=== PATIENT | female | born 1955 | race Caucasian/White ===

== ENCOUNTER 2020-03-08 08:58 | Outpatient (REF) | payer OTHER, SELFPAY ==
[2020-03-08 09:18] LABS: COVID-19 Test Negative (Negative)
== END 2020-03-08 08:59 | disposition home or self-care (01) ==
LOC: HO.LAB 08:58
PROVIDERS: Visit Provider Internal Medicine
DX: Z20.828 Contact with and (suspected) exposure to other viral communicable diseases (principal)
CPT/HCPCS: 87635

== ENCOUNTER 2020-03-22 07:57 | Outpatient (REF) | payer OTHER, SELFPAY ==
--- NOTE | 2020-03-22 08:10 | XR_ITS ---
EXAMINATION: XR CHEST CLINICAL INFORMATION: Cough COMPARISON: None TECHNIQUE: 2 views of the chest were obtained. FINDINGS: The cardiac and mediastinal contours are normal. There is linear scarring or subsegmental atelectasis in the left mid lung. The lungs are otherwise clear. There is no pleural effusion or pneumothorax. There are degenerative changes of the spine. XR/XR chest 2V IMPRESSION: Left lung scarring or subsegmental atelectasis.
[2020-03-22 08:48] LABS: MANUAL DIFF FLAG NO
[2020-03-22 09:06] LABS: Basophils Absolute Auto 0.1 X10*3/uL (0.0-0.2); Basophils Percent Auto 0.7 % (0-2); Eosinophils Absolute Auto 0.2 X10*3/uL (0.0-0.4); Eosinophils Percent Auto 2.3 % (0-4); Hematocrit 39.8 % (37-47); Hemoglobin 13.1 g/dl (12.0-16.0); Imm Gran Abs Auto 0.03 X10*3/uL (0.00-0.03); Imm Gran Pct Auto 0.4 % (0.0-0.4); Lymphocytes Absolute Auto 2.3 X10*3/uL (1.2-4.9); Lymphocytes Percent Auto 32.8 % (20-40); Mean Corpuscular HGB Conc 32.9 g/dl (31.0-35.0); Mean Corpuscular Hemoglobin 30.2 pg (27.0-33.0); Mean Corpuscular Volume 91.7 fL (80-98); Mean Platelet Volume 9.9 fL (9.4-12.3); Monocytes Absolute Auto 0.4 X10*3/uL (0.1-1.2); Neutrophils Percent Auto 57.8 % (45-73); Platelet Count 311 X10*3/uL (160-400); Red Blood Count 4.34 X10*6/uL (4.20-5.50); Red Cell Distribution Width 12.4 % (11.0-16.0); White Blood Count 6.9 X10*3/uL (4.8-10.8)
[2020-03-22 10:14] LABS: Erythrocyte Sedimentation Rate 12 MM/HR (0-20)
[2020-03-27 19:09] LABS: Mycoplasma Pneumoniae - IgG 2.56 (<=0.90); Mycoplasma Pneumoniae - IgM 65 U/mL (<770)
== END 2020-03-22 07:58 | disposition home or self-care (01) ==
LOC: HO.LAB 07:57
DX: R53.83 Other fatigue (principal); R05 Cough
CPT/HCPCS: 36415; 71046; 85025; 85652; 86738

== ENCOUNTER 2020-04-03 08:44 | Outpatient (REF) | payer OTHER, SELFPAY ==
[2020-04-03 10:48] LABS: COVID-19 Test Negative (Negative)
== END 2020-04-03 08:45 | disposition home or self-care (01) ==
LOC: HO.EMPCOV 08:44
PROVIDERS: Visit Provider Internal Medicine
DX: Z20.828 Contact with and (suspected) exposure to other viral communicable diseases (principal)
CPT/HCPCS: 87635; C9803

== ENCOUNTER 2020-04-10 07:40 | Outpatient (REF) | payer OTHER, SELFPAY ==
[2020-04-10 08:37] LABS: COVID-19 Test Negative (Negative)
== END 2020-04-10 07:41 | disposition home or self-care (01) ==
LOC: HO.EMPCOV 07:40
PROVIDERS: Visit Provider Internal Medicine
DX: Z20.828 Contact with and (suspected) exposure to other viral communicable diseases (principal)
CPT/HCPCS: 87635; C9803

== ENCOUNTER 2020-06-21 12:53 | Outpatient (REF) | payer OTHER, SELFPAY ==
[2020-06-21 13:14] LABS: COVID-19 Test Negative (Negative)
== END 2020-06-21 12:54 | disposition home or self-care (01) ==
LOC: HO.EMPCOV 12:53
PROVIDERS: Visit Provider Internal Medicine
DX: Z20.822 Contact with and (suspected) exposure to COVID-19 (principal)
CPT/HCPCS: 36415; 87635; C9803

== ENCOUNTER 2020-06-27 08:10 | Outpatient (REF) | payer OTHER, SELFPAY ==
[2020-06-27 09:14] LABS: COVID-19 Test Negative (Negative); IDNOW Serial# 55D5AD1C
== END 2020-06-27 08:11 | disposition home or self-care (01) ==
LOC: HO.EMPCOV 08:10
PROVIDERS: Visit Provider Internal Medicine
DX: Z20.822 Contact with and (suspected) exposure to COVID-19 (principal)
CPT/HCPCS: 36415; 87635; C9803

== ENCOUNTER 2020-07-27 07:33 | Outpatient (REF) | payer OTHER, SELFPAY ==
[2020-07-27 08:11] LABS: MANUAL DIFF FLAG NO
[2020-07-27 08:13] LABS: Basophils Percent Auto 0.4 % (0-2); Eosinophils Absolute Auto 0.2 X10*3/uL (0.0-0.4); Eosinophils Percent Auto 2.1 % (0-4); Hematocrit 39.2 % (37-47); Hemoglobin 13.2 g/dl (12.0-16.0); Imm Gran Abs Auto 0.01 X10*3/uL (0.00-0.03); Imm Gran Pct Auto 0.1 % (0.0-0.4); Lymphocytes Absolute Auto 1.7 X10*3/uL (1.2-4.9); Lymphocytes Percent Auto 23.8 % (20-40); Mean Corpuscular HGB Conc 33.7 g/dl (31.0-35.0); Mean Corpuscular Hemoglobin 30.8 pg (27.0-33.0); Mean Corpuscular Volume 91.6 fL (80-98); Mean Platelet Volume 9.6 fL (9.4-12.3); Monocytes Absolute Auto 0.4 X10*3/uL (0.1-1.2); Monocytes Percent Auto 5.2 % (2-11); Neutrophils Absolute Auto 4.8 X10*3/uL (2.0-8.3); Neutrophils Percent Auto 68.4 % (45-73); Platelet Count 279 X10*3/uL (160-400); Red Blood Count 4.28 X10*6/uL (4.20-5.50); Red Cell Distribution Width 12.7 % (11.0-16.0); White Blood Count 7.1 X10*3/uL (4.8-10.8)
[2020-07-27 08:36] LABS: Glucose Urine UA NEG (NEG); Leukocyte Esterase Urine NEG (NEG); Nitrite Urine NEG (NEG); PH 5.5 (5.0-8.0); Specific Gravity - Urine 1.025 (1.005-1.025); Urine Blood 1+ (NEG); Urine Ketones NEG (NEG); Urine Protein NEG (NEG-TRACE)
[2020-07-27 08:38] LABS: Appearance Urine CLEAR; Color Urine YELLOW
[2020-07-27 08:49] LABS: Bacteria Urine TRACE /LPF; Mucus Urine TRACE /LPF; Squamous Epithelial Cell Urine 1+ /LPF; WBC Urine 0-2 /HPF (0-4)
[2020-07-27 08:50] LABS: Erythrocyte Sedimentation Rate 9 MM/HR (0-20)
[2020-07-27 09:43] LABS: Alanine Aminotransferase 19 U/L (0-31); Albumin Level 4.4 g/dL (3.5-5.0); Alkaline Phosphatase 66 U/L (39-117); Anion Gap 11 (12-20); Aspartate Amino Transferase 21 U/L (5-31); Bilirubin Total 0.9 mg/dL (0.0-1.0); Blood Urea Nitrogen 18 mg/dL (9-16); C Reactive Protein 0.17 mg/dL (< or = 0.50); Calcium 9.5 mg/dL (8.4-10.2); Carbon Dioxide 28 mmol/L (22-29); Chloride 106 mmol/L (96-108); Cholesterol 255 mg/dL; Estimated Glomerular Filt Rate > 60; Glucose Fasting 108 mg/dL (60-99); HDL Cholesterol 60 mg/dL; LDL Cholesterol Calculated 154 mg/dl; Potassium 4.8 mmol/L (3.3-5.1); Sodium 140 mmol/L (135-145); Total Protein 6.7 g/dL (6.5-8.0); Triglycerides 205 mg/dL
== END 2020-07-27 07:34 | disposition home or self-care (01) ==
LOC: HO.LAB 07:33
DX: Z00.00 Encounter for general adult medical examination without abnormal findings (principal)
CPT/HCPCS: 36415; 80053; 80061; 81001; 82533; 85025; 85652; 86140

== ENCOUNTER 2020-07-27 08:11 | Outpatient (REF) | payer OTHER, SELFPAY ==
[2020-07-27 08:28] LABS: COVID-19 Test Negative (Negative)
== END 2020-07-27 08:12 | disposition home or self-care (01) ==
LOC: HO.EMPCOV 08:11
PROVIDERS: Visit Provider Internal Medicine
DX: Z20.822 Contact with and (suspected) exposure to COVID-19 (principal)
CPT/HCPCS: 36415; 87635; C9803

== ENCOUNTER 2020-08-16 07:16 | Outpatient (REF) | payer OTHER, SELFPAY ==
--- NOTE | ~2020-08-16 | MM_ITS ---
EXAMINATION: MM SCREENING DIGITAL BREAST TOMOSYNTHESIS, BILATERAL CLINICAL INFORMATION: Screening. Asymptomatic. The lifetime risk of breast cancer based on the Tyrer-Cuzick Model is 6%. COMPARISON: Mammography: 03/02/2019, outside exam 02/26/2017 ([facility]) TECHNIQUE: Digital breast tomosynthesis is performed in both the craniocaudal and mediolateral oblique views along with computer-aided detection (CAD). Synthesized 2D images are generated from the tomosynthesis. Additional bilateral MLO views are provided. FINDINGS: The breasts are almost entirely fatty (ACR BI-RADS breast composition Category a). Background stromal densities are stable. There is no interval mass or architectural abnormality or abnormal calcifications. The axilla and skin contours are unremarkable. MM/MM tomosynthesis screening BI IMPRESSION: No mammographic evidence of malignancy. ASSESSMENT: BI-RADS 1: Negative RECOMMENDATION: Routine annual mammography screening. This patient's information was entered into a reminder system with a target due date for their next mammogram.
== END 2020-08-16 07:17 | disposition home or self-care (01) ==
LOC: HO.MAMMO 07:16
PROVIDERS: Visit Provider Obstetrics & Gynecology
DX: Z12.31 Encounter for screening mammogram for malignant neoplasm of breast (principal)
CPT/HCPCS: 77063; 77067

== ENCOUNTER 2020-09-08 16:31 | Outpatient (REF) | payer OTHER, SELFPAY ==
[2020-09-08 18:32] LABS: Thyroid Stimulating Hormone 1.72 uIU/mL (0.32-4.0)
== END 2020-09-08 16:32 | disposition home or self-care (01) ==
LOC: HO.LAB 16:31
DX: E06.3 Autoimmune thyroiditis (principal)
CPT/HCPCS: 36415; 84443

== ENCOUNTER 2020-11-22 07:34 | Outpatient (REF) | payer OTHER, SELFPAY ==
[2020-11-22 09:19] LABS: Erythrocyte Sedimentation Rate 12 MM/HR (0-20)
[2020-11-22 09:25] LABS: Alanine Aminotransferase 24 U/L (0-31); Albumin Level 4.3 g/dL (3.5-5.0); Alkaline Phosphatase 68 U/L (39-117); Anion Gap 14 (12-20); Aspartate Amino Transferase 24 U/L (5-31); Bilirubin Total 0.9 mg/dL (0.0-1.0); Blood Urea Nitrogen 20 mg/dL (9-16); Calcium 9.4 mg/dL (8.4-10.2); Carbon Dioxide 24 mmol/L (22-29); Chloride 107 mmol/L (96-108); Cholesterol 162 mg/dL; Estimated Glomerular Filt Rate > 60; Glucose Random 106 mg/dL (60-115); HDL Cholesterol 59 mg/dL; LDL Cholesterol Calculated 80 mg/dl; Potassium 5.1 mmol/L (3.3-5.1); Sodium 140 mmol/L (135-145); Triglycerides 115 mg/dL
[2020-11-24 10:26] LABS: CRP High Sensitivity 1.7 mg/L
== END 2020-11-22 07:35 | disposition home or self-care (01) ==
LOC: HO.LAB 07:34
DX: E78.2 Mixed hyperlipidemia (principal); I10 Essential (primary) hypertension
CPT/HCPCS: 36415; 80053; 80061; 85652; 86141

== ENCOUNTER 2020-11-28 07:44 | Outpatient (REF) | payer OTHER, SELFPAY ==
[2020-11-30 19:31] LABS: TS Negative Control Passed; TS Panel A 0; TS Panel B 0; TS Positive Control Passed; TSpotTB Negative (SeeBelow)
[2020-12-04 04:47] LABS: Angiotensin Converting Enzyme 36 U/L (9-67)
== END 2020-11-28 07:45 | disposition home or self-care (01) ==
LOC: HO.LAB 07:44
DX: R05 Cough (principal); D86.0 Sarcoidosis of lung
CPT/HCPCS: 36415; 82164; 86481

== ENCOUNTER 2021-01-26 07:47 | Outpatient (REF) | payer OTHER, SELFPAY ==
[2021-01-26 09:51] LABS: Alanine Aminotransferase 38 U/L (0-31); Albumin Level 4.4 g/dL (3.5-5.0); Alkaline Phosphatase 59 U/L (39-117); Anion Gap 13 (12-20); Aspartate Amino Transferase 26 U/L (5-31); Bilirubin Total 1.5 mg/dL (0.0-1.0); Blood Urea Nitrogen 20 mg/dL (9-16); Calcium 9.7 mg/dL (8.4-10.2); Carbon Dioxide 27 mmol/L (22-29); Chloride 105 mmol/L (96-108); Cholesterol 149 mg/dL; Estimated Glomerular Filt Rate > 60; Glucose Random 109 mg/dL (60-115); HDL Cholesterol 68 mg/dL; LDL Cholesterol Calculated 61 mg/dl; Potassium 4.9 mmol/L (3.3-5.1); Sodium 140 mmol/L (135-145); Total Protein 6.7 g/dL (6.5-8.0); Triglycerides 104 mg/dL
[2021-01-26 10:09] LABS: Erythrocyte Sedimentation Rate 11 MM/HR (0-20)
[2021-01-27 14:26] LABS: CRP High Sensitivity 0.6 mg/L
== END 2021-01-26 07:48 | disposition home or self-care (01) ==
LOC: HO.LAB 07:47
DX: E78.2 Mixed hyperlipidemia (principal); I10 Essential (primary) hypertension
CPT/HCPCS: 36415; 80053; 80061; 85652; 86141

== ENCOUNTER 2021-02-07 12:47 | Outpatient (REF) | payer OTHER, SELFPAY ==
--- NOTE | ~2021-02-07 | XR_ITS ---
EXAMINATION: XR FOOT, RIGHT CLINICAL INFORMATION: Right foot pain COMPARISON: None TECHNIQUE: AP, lateral, and oblique views of the right foot. FINDINGS: There is loss of PIP joint space with periarticular spurring. No visible acute fracture or dislocation seen. The ankle mortise and subtalar joints are normal. A small calcaneal heel enthesophyte. XR/XR foot RT min 3V IMPRESSION: Mild degenerative changes first MTP joint. No visible acute fracture or dislocation seen. Small calcaneal heel enthesophyte.
== END 2021-02-07 12:48 | disposition home or self-care (01) ==
LOC: HO.XRAY 12:47
DX: M79.671 Pain in right foot (principal)
CPT/HCPCS: 73630

== ENCOUNTER 2021-10-10 12:55 | Outpatient (REF) | payer OTHER, SELFPAY ==
--- NOTE | ~2021-10-10 | MM_ITS ---
EXAMINATION: BONE DENSITOMETRY CLINICAL INDICATION: Menopause. COMPARISON: None (current study represents initial baseline exam). TECHNIQUE: Using a [employer] DXA System (software version: 13.1) manufactured by [employer], dual-energy x-ray absorptiometry was performed of the lumbar spine and left hip. The images are of good technical quality. Summary results are attached. FINDINGS: AP SPINE L1-L4: BMD 1.225 g/cm2, Z-score 1.4, T-score 0.4, normal. LEFT FEMUR, NECK: BMD 0.966 g/cm2, Z-score 0.6, T-score -0.5, normal. LEFT FEMUR, TOTAL: BMD 1.112 g/cm2, Z-score 1.6, T-score 0.8, normal. IDENTIFIED RISK FACTORS: Height loss, history of fracture (adult), menopause, hysterectomy, bilateral oophorectomy. HISTORY OF FRACTURE: Ankle. MEDICATIONS: Vitamin D. MM/XR DEXA axial skeleton IMPRESSION: 1. DIAGNOSIS: Normal bone density based on the lowest T-score value of -0.5 in the femoral neck applying World Health Organization criteria. 2. 10-YEAR FRACTURE RISK PREDICTION, FRAX: According to the guidelines, FRAX calculation should only be performed on patients in the osteopenia bone density category. Therefore, FRAX was not performed on this patient. 3. Treatment Recommendations: NOF guidelines recommend consideration for treatment in postmenopausal women and men age 50 and older presenting with the following: -A hip or vertebral (clinical or morphometric) fracture. -T-score less than or equal to -2.5 at the femoral neck or spine after appropriate evaluation to exclude secondary causes. -Low bone mass at the hip or spine and a 10-year fracture probability by FRAX of greater than or equal to 3% for hip fracture or greater than or equal to 20% for major osteoporotic fracture based on the [place] adapted WHO algorithm. 4. Other Recommendations: All treatment decisions require clinical judgment and consideration of individual patient factors, including patient preferences, comorbidities, previous drug use, risk factors not captured in the FRAX model (e.g. frailty, falls, vitamin D deficiency, increased bone turnover, interval significant decline in bone density) and possible under or overestimation of fracture risk by FRAX. FUTURE SCAN RECOMMENDATION: People with diagnosed cases of osteoporosis or at high risk for fracture should have regular bone mineral density tests. For patients eligible for Medicare, routine testing is allowed once every 2 years. The testing frequency can be increased to one year for patients who have rapidly progressing disease, those who are receiving or discontinuing medical therapy to restore bone mass, or have additional risk factors.
--- NOTE | ~2021-10-10 | MM_ITS ---
EXAMINATION: MM SCREENING DIGITAL BREAST TOMOSYNTHESIS, BILATERAL CLINICAL INFORMATION: Screening. Asymptomatic. The lifetime risk of breast cancer based on the Tyrer-Cuzick Model is 8%. COMPARISON: Mammography: 08/16/2020, 03/02/2019, 02/26/2017 TECHNIQUE: Digital breast tomosynthesis is performed in both the craniocaudal and mediolateral oblique views along with computer-aided detection (CAD). Synthesized 2D images are generated from the tomosynthesis. FINDINGS: The breasts are almost entirely fatty (ACR BI-RADS breast composition Category a). There are no significant masses, abnormal calcifications, or other abnormalities. Background stromal markings are similar to prior studies. No developing density. The axilla and skin contours are unremarkable. MM/MM tomosynthesis screening BI IMPRESSION: No mammographic evidence of malignancy. ASSESSMENT: BI-RADS 1: Negative RECOMMENDATION: Routine annual mammography screening. This patient's information was entered into a reminder system with a target due date for their next mammogram.
== END 2021-10-10 12:56 | disposition home or self-care (01) ==
LOC: HO.MAMMO 12:55
PROVIDERS: Visit Provider Obstetrics & Gynecology
DX: Z12.31 Encounter for screening mammogram for malignant neoplasm of breast (principal); Z13.820 Encounter for screening for osteoporosis; Z78.0 Asymptomatic menopausal state
CPT/HCPCS: 77063; 77067; 77080

== ENCOUNTER 2021-10-16 07:00 | Outpatient (RCR) | payer OTHER, SELFPAY | END 2021-10-16 08:56 | disposition home or self-care (01) | LOC: HO.PT 07:00 | PROVIDERS: Visit Provider Orthopaedic Surgery | DX: S82.61XD Displaced fracture of lateral malleolus of right fibula, subsequent encounter for closed fracture with routine healing (principal) | CPT/HCPCS: 97110; 97161; 97530 ==

== ENCOUNTER 2021-10-25 07:41 | Outpatient (REF) | payer OTHER, SELFPAY ==
[2021-10-25 08:10] LABS: MANUAL DIFF FLAG NO
[2021-10-25 08:37] LABS: Basophils Percent Auto 0.6 % (0-2); Eosinophils Absolute Auto 0.2 X10*3/uL (0.0-0.4); Eosinophils Percent Auto 2.9 % (0-4); Hematocrit 38.1 % (37.0-47.0); Hemoglobin 13.1 g/dl (12.0-16.0); Imm Gran Abs Auto 0.01 X10*3/uL (0.00-0.03); Imm Gran Pct Auto 0.2 % (0.0-0.4); Lymphocytes Absolute Auto 1.9 X10*3/uL (1.2-4.9); Lymphocytes Percent Auto 36.7 % (20-40); Mean Corpuscular HGB Conc 34.4 g/dl (31.0-35.0); Mean Corpuscular Hemoglobin 31.5 pg (27.0-33.0); Mean Corpuscular Volume 91.6 fL (80.0-98.0); Mean Platelet Volume 9.9 fL (9.4-12.3); Monocytes Absolute Auto 0.3 X10*3/uL (0.1-1.2); Monocytes Percent Auto 5.9 % (2-11); Neutrophils Absolute Auto 2.8 x10*3/uL (2.0-8.3); Neutrophils Percent Auto 53.7 % (45-73); Platelet Count 269 X10*3/uL (160-400); Red Blood Count 4.16 X10*6/uL (4.20-5.50); Red Cell Distribution Width 12.4 % (11.0-16.0); White Blood Count 5.3 X10*3/uL (4.8-10.8)
[2021-10-25 08:49] LABS: Appearance Urine CLEAR; Color Urine YELLOW; Glucose Urine UA NEG (NEG); Leukocyte Esterase Urine NEG (NEG); Nitrite Urine NEG (NEG); Urine Blood 1+ (NEG); Urine Ketones NEG (NEG); Urine Protein NEG (NEG-TRACE)
[2021-10-25 08:54] LABS: Estimated Average Glucose 123 mg/dL; Hemoglobin A1c % 5.9 %
[2021-10-25 09:02] LABS: Squamous Epithelial Cell Urine 1+ /LPF; WBC Urine 0 /HPF (0-4)
[2021-10-25 09:05] LABS: Alanine Aminotransferase 19 U/L (0-31); Albumin Level 4.4 g/dL (3.5-5.0); Alkaline Phosphatase 71 U/L (39-117); Anion Gap 11 (12-20); Aspartate Amino Transferase 19 U/L (5-31); Bilirubin Total 0.7 mg/dL (0.0-1.0); Blood Urea Nitrogen 20 mg/dL (9-16); Calcium 9.7 mg/dL (8.4-10.2); Carbon Dioxide 26 mmol/L (22-29); Chloride 105 mmol/L (96-108); Cholesterol 168 mg/dL; Estimated Glomerular Filt Rate > 60; Glucose Random 107 mg/dL (60-115); HDL Cholesterol 64 mg/dL; LDL Cholesterol Calculated 83 mg/dl; Potassium 4.6 mmol/L (3.3-5.1); Sodium 137 mmol/L (135-145); Triglycerides 106 mg/dL
[2021-10-25 09:13] LABS: Erythrocyte Sedimentation Rate 10 MM/HR (0-20)
[2021-10-25 09:26] LABS: Thyroid Stimulating Hormone 1.69 uIU/mL (0.32-4.0)
[2021-10-25 09:54] LABS: Cortisol Random 8.2 ug/dL
[2021-10-27 14:02] LABS: CRP High Sensitivity 0.6 mg/L
== END 2021-10-25 07:42 | disposition home or self-care (01) ==
LOC: HO.LAB 07:41
DX: Z00.01 Encounter for general adult medical examination with abnormal findings (principal); E78.2 Mixed hyperlipidemia; I10 Essential (primary) hypertension; R53.83 Other fatigue
CPT/HCPCS: 36415; 80053; 80061; 81001; 82533; 83036; 84443; 85025; 85652; 86141

== ENCOUNTER 2021-11-05 12:37 | Outpatient (REF) | payer OTHER, SELFPAY ==
[2021-11-05 14:10] LABS: Urine Cytology See Pathology rpt
== END 2021-11-05 12:38 | disposition home or self-care (01) ==
LOC: HO.LAB 12:37
DX: R31.21 Asymptomatic microscopic hematuria (principal)
CPT/HCPCS: 88112

== ENCOUNTER 2021-11-06 | Outpatient (REF) | payer OTHER, SELFPAY ==
[2021-11-06 12:18] LABS: Urine Cytology See Pathology rpt
== END 2021-11-06 00:01 ==
LOC: HO.LAB
DX: R31.21 Asymptomatic microscopic hematuria (principal)
CPT/HCPCS: 88112

== ENCOUNTER 2021-11-07 | Outpatient (REF) | payer OTHER, SELFPAY ==
[2021-11-07 13:25] LABS: Urine Cytology See Pathology rpt
== END 2021-11-07 00:01 ==
LOC: HO.LAB
DX: R31.21 Asymptomatic microscopic hematuria (principal)
CPT/HCPCS: 88112

== ENCOUNTER → 2022-06-12 12:50 | Outpatient (BNVA) | payer OTHER, SELFPAY | PROVIDERS: PCP Physician Assistant Medical; Visit Provider Nurse Practitioner Family | DX: Z13.89 Encounter for screening for other disorder (principal) ==

== ENCOUNTER 2022-06-27 13:32 | Emergency (ER) | payer OTHER, SELFPAY ==
--- NOTE | ~2022-06-27 | XR_ITS ---
EXAMINATION: XR CHEST CLINICAL INFORMATION: Upper back pain with shortness of breath COMPARISON: March 22, 2020 TECHNIQUE: 2 views of the chest were obtained. FINDINGS: No significant abnormality is noted involving the heart, lungs, mediastinum, bony thorax or soft tissues. Linear scarring is seen within the mid left chest. XR/XR chest 2V IMPRESSION: No acute disease.
[2022-06-27 13:37] VITALS: BP 164/82; PULSE 88; RESP 19; TEMP 36.6; O2SAT 98; BMI 32.5
--- NOTE | 2022-06-27 13:38 | ECG_ITS ---
Test Reason : arrhythmia Blood Pressure : / mmHG Vent. Rate : 086 BPM Atrial Rate : 086 BPM P-R Int : 140 ms QRS Dur : 090 ms QT Int : 386 ms P-R-T Axes : 054 -26 046 degrees QTc Int : 461 ms Sinus rhythm with frequent Premature ventricular complexes Low voltage QRS Nonspecific ST abnormality Abnormal ECG No previous ECGs available Referred By: Emma Solorio Electronically Signed By:Rafael Alston
--- NOTE | 2022-06-27 13:38 | ED.GENADULT ---
HPI - General Adult General Chief complaint: General Medical Stated complaint: sob, upper back pain, heart pounding. Time Seen by Provider: 06/27/22 19:04 Related Data Home Medications Medication Instructions Recorded Confirmed estradiol 10 mcg vaginal tablet 10 mcg vaginal 2XW 06/12/22 pantoprazole 40 mg tablet,delayed 40 mg PO DAILY 06/12/22 release rosuvastatin 40 mg tablet 40 mg PO DAILY 06/12/22 sertraline 100 mg tablet 100 mg PO DAILY 06/12/22 valsartan 160 mg tablet 160 mg PO DAILY 06/12/22 Allergies Allergy/AdvReac Type Severity Reaction Status Date / Time penicillin V Allergy Unknown hives Verified 06/12/22 18:25 doxycycline AdvReac Fainting Verified 06/12/22 18:25 [facility] Social History Social History Advance Directives: No Physical Exam ED Vital Signs: Vital Signs - 24 hr 06/27/22 13:37 06/27/22 19:26 Temperature 98 F 98.3 F Pulse Rate 88 68 Respiratory Rate 19 17 Blood Pressure 164/82 H 170/72 H Pulse Oximetry 98 95 Oxygen Delivery Method Room Air Room Air BMI result Body Mass Index 32.5 Course Course Course Narrative: RME- 13:38PM - 66yoF with a past medical history of HTN compliant on medications, sarcoidosis and asthma who is presenting to the ED with complaints Upper back pain intermittent x 1 week across the shoulder bladed and today started with SOB/palpitations. Associated dizziness, generalized weakness, fatigue, exhaustion. Denies changes in vision, jaw pain, chest pain, leg swelling or calf pain. Plan: Labs including troponin, EKG, chest x-ray. Patient will be sent back to the waiting room to be evaluated in the ED. Medical Decision Making Lab Data 06/27/22 13:52 06/27/22 13:51 Labs: Lab Results 06/27/22 06/27/22 06/27/22 Range/Units 13:51 13:51 13:51 WBC (4.8-10.8) X10*3/uL RBC (4.20-5.50) X10*6/uL Hgb (12.0-16.0) g/dl Hct (37.0-47.0) % MCV (80.0-98.0) fL MCH (27.0-33.0) pg MCHC (31.0-35.0) g/dl RDW (11.0-16.0) % Plt Count (160-400) X10*3/uL MPV (9.4-12.3) fL Immature Gran % (Auto) (0.0-0.4) % Neut % (Auto) (45-73) % Lymph % (Auto) (20-40) % [place] % (Auto) (2-11) % Eos % (Auto) (0-4) % Baso % (Auto) (0-2) % Lymph # (Auto) (1.2-4.9) X10*3/uL [place] # (Auto) (0.1-1.2) X10*3/uL Eos # (Auto) (0.0-0.4) X10*3/uL Baso # (Auto) (0.0-0.2) X10*3/uL Abs Immat Gran (auto) (0.00-0.03) X10*3/uL Absolute Neuts (auto) (2.0-8.3) x10*3/uL Absolute Nucleated RBC (0.0-0.012) X10*3/uL Nucleated RBC % (auto) (0.0-0.2) /100WBC PT 10.7 (10.0-13.1) SEC INR 0.9 (0.9-1.1) Sodium 139 (135-145) mmol/L Potassium 3.9 (3.3-5.1) mmol/L Chloride 108 (96-108) mmol/L Carbon Dioxide 21 L (22-29) mmol/L Anion Gap 14 (12-20) BUN 17 H (9-16) mg/dL Creatinine 0.89 (0.5-1.4) mg/dL Estim Creat Clear Calc 64.4 Estimated GFR > 60 Random Glucose 155 H (60-115) mg/dL Calcium 9.5 (8.4-10.2) mg/dL Magnesium 1.9 (1.6-2.6) mg/dL Total Bilirubin 1.3 H (0.0-1.0) mg/dL AST 22 (5-31) U/L ALT 22 (0-31) U/L Alkaline Phosphatase 64 (39-117) U/L Troponin I High Sens < 3.5 (<3.5-17.0) ng/L Total Protein 7.2 (6.5-8.0) g/dL Albumin 4.4 (3.5-5.0) g/dL Influenza Type A (PCR) (Negative) Influenza Type B (PCR) (Negative) RSV RNA Qual (PCR) (Negative) SARS-CoV-2 RNA (RT-PCR) (Negative) 06/27/22 06/27/22 Range/Units 13:51 13:52 WBC 6.7 (4.8-10.8) X10*3/uL RBC 4.32 (4.20-5.50) X10*6/uL Hgb 13.2 (12.0-16.0) g/dl Hct 39.5 (37.0-47.0) % MCV 91.4 (80.0-98.0) fL MCH 30.6 (27.0-33.0) pg MCHC 33.4 (31.0-35.0) g/dl RDW 12.5 (11.0-16.0) % Plt Count 303 (160-400) X10*3/uL MPV 9.7 (9.4-12.3) fL Immature Gran % (Auto) 0.2 (0.0-0.4) % Neut % (Auto) 53.0 (45-73) % Lymph % (Auto) 39.9 (20-40) % [place] % (Auto) 4.4 (2-11) % Eos % (Auto) 2.0 (0-4) % Baso % (Auto) 0.5 (0-2) % Lymph # (Auto) 2.7 (1.2-4.9) X10*3/uL [place] # (Auto) 0.3 (0.1-1.2) X10*3/uL Eos # (Auto) 0.1 (0.0-0.4) X10*3/uL Baso # (Auto) 0.0 (0.0-0.2) X10*3/uL Abs Immat Gran (auto) 0.01 (0.00-0.03) X10*3/uL Absolute Neuts (auto) 3.5 (2.0-8.3) x10*3/uL Absolute Nucleated RBC 0.000 (0.0-0.012) X10*3/uL Nucleated RBC % (auto) 0.0 (0.0-0.2) /100WBC PT (10.0-13.1) SEC INR (0.9-1.1) Sodium (135-145) mmol/L Potassium (3.3-5.1) mmol/L Chloride (96-108) mmol/L Carbon Dioxide (22-29) mmol/L Anion Gap (12-20) BUN (9-16) mg/dL Creatinine (0.5-1.4) mg/dL Estim Creat Clear Calc Estimated GFR Random Glucose (60-115) mg/dL Calcium (8.4-10.2) mg/dL Magnesium (1.6-2.6) mg/dL Total Bilirubin (0.0-1.0) mg/dL AST (5-31) U/L ALT (0-31) U/L Alkaline Phosphatase (39-117) U/L Troponin I High Sens (<3.5-17.0) ng/L Total Protein (6.5-8.0) g/dL Albumin (3.5-5.0) g/dL Influenza Type A (PCR) NEGATIVE (Negative) Influenza Type B (PCR) NEGATIVE (Negative) RSV RNA Qual (PCR) NEGATIVE (Negative) SARS-CoV-2 RNA (RT-PCR) NEGATIVE (Negative) Discharge Plan Discharge Clinical Impression: Back pain, Frequent PVCs Patient Disposition: Home, Self-Care Instructions: Back Pain (ED) Additional Instructions: your workup in the emergency department today was reassuring. This included blood work, chest x-ray and an EKG. Yourr EKG did show frequent PVCs which could explain the palpitations that you were feeling. You may use our profound or Tylenol for any further back pain. return for new or worsening symptoms call your doctor tomorrow to schedule follow-up Prescriptions: No Action sertraline 100 mg tablet 100 mg PO DAILY rosuvastatin 40 mg tablet 40 mg PO DAILY valsartan 160 mg tablet 160 mg PO DAILY pantoprazole 40 mg tablet,delayed release (DR/EC) 40 mg PO DAILY estradiol 10 mcg tablet 10 mcg vaginal 2XW Interventions: ED Discharge Assessment Last Done: 06/27/22 19:45 Discharge Date/Time: 06/27/22 19:46
--- OUTSIDE RECORDS SUMMARY | 2022-06-27 13:53 | XMS_ITS | Continuity of Care Document ---
:1955 Author Organization [facility] Address [address] [place] [address]- Care Team Providers Name Role Phone Beck Vargas MD Primary Care Physician Unavailable Encounter [facility] [place] Date(s): 01/24/22 - 02/23/22 [facility] [address] [place], [place] [address] Allergies, Adverse Reactions, Alerts Substance Reaction Severity Status doxycycline passed out Active penicillins rash Active Stadol itchy/jittery Active Medications Crestor 40 mg oral tablet 1 tablet = 40 mg, By Mouth, Daily at bedtime, 0 Refills, Maintenance Start Date: 02/28/12 Status: OrderedProtonix 40 mg oral granule 1 each = 40 mg, By Mouth, Daily, 0 Refills, Maintenance Start Date: 02/28/12 Status: Orderedvalsartan 80 mg oral tablet 80 mg, 1, tablet, By Mouth, Daily, # 30 tablet, Refills 0, Maintenance, 07/02/21 12:45:00 EST, Partial fill upon patient request if the prescription is for a schedule II opioid drug. Start Date: 07/02/21 Status: OrderedVitamin D3 By Mouth, 0 Refills, Maintenance, 04/29/14 14:02:21 Start Date: 04/29/14 Status: OrderedZoloft Tablet 100, mg, By Mouth, Daily in AM, 0, 0, 09/29/06 12:26:27, Print BINA Number, [id number], Constant Indicator Start Date: 09/29/06 Status: Ordered Problem List Condition Confirmation Course Effective Dates Status Health Stat us Informant Obese class I Confirmed Active Injury of ankle, Confirmed 07/02/21 Active right Social History Social History Type Response Smoking Status Former smoker entered on: 04/29/14 Sex Patient Care team information PersonnelName: Beck Vargas MD
--- OUTSIDE RECORDS SUMMARY | 2022-06-27 13:53 | XMS_ITS | Continuity of Care Document ---
:1955 Author Organization [facility] Address [address] [place] [address]- Care Team Providers Name Role Phone Beck Vargas MD Primary Care Physician Encounter [facility] [id number] Date(s): 07/06/21 - 08/05/21 [facility] [address] [place] [address]- Allergies, Adverse Reactions, Alerts Substance Reaction Severity [...] Date: 09/29/06 Status: Ordered Problem List Condition Effective Dates Status Health Status Informant Obese class I(Confirmed) Active Injury of ankle, right(Confirmed) 07/02/21 Active Social History Social History Type Response Smoking Status Former smoker entered on: 04/29/14 Sex
--- OUTSIDE RECORDS SUMMARY | 2022-06-27 13:53 | XMS_ITS | Continuity of Care Document ---
:1955 Author Organization [facility] Address [address] [place] [address]- Care Team Providers Name Role Phone Jere Regan Primary Care Physician [place] [facility] [place](s): 03/27/22 - 04/26/22 [facility] [address] [place], [place] [address] Attending Physician: Amanda Adams Admitting Physician: Amanda Adams Referring Physician: AdmtrAmanda Allergies, Adverse Reactions, Alerts Substance Reaction Severity Status doxycycline passed out Active penicillins rash Active Stadol itchy/jittery Active Immunizations Given and Recorded Vaccine Date Status Refusal Reason influenza virus vaccine, inactivated 02/26/22 Recorded influenza virus vaccine, inactivated 03/01/21 Recorded influenza virus vaccine, inactivated 02/16/20 Recorded influenza virus vaccine, inactivated 03/19/19 Recorded SARS-CoV-2 (COVID-19) mRNA-1273 vaccine 06/12/20 Recorded SARS-CoV-2 (COVID-19) mRNA-1273 vaccine 05/15/20 Recorded Medications estradiol 10 mcg vaginal tablet INSERT 1 TABLET VAGINALLY 2 TIMES A WEEK Start Date: 03/27/22 Status: Orderedpantoprazole 40 mg oral delayed release tablet 1 tablet = 40 mg, By Mouth, Daily, # 90 tablet, 0 Refills, Maintenance, 03/27/22 12:24:00 EST, EC Tablet, 160, cm, 03/27/22 9:00:00 EST, Height, 84, kg, 07/05/21 14:31:00 EST, Dry Weight Start Date: 03/27/22 Stop Date: 06/25/22 Status: Orderedrosuvastatin 40 mg oral tablet 1 tablet = 40 mg, By Mouth, Daily, # 90 tablet, 0 Refills, Maintenance, 03/27/22 12:24:00 EST, Tablet, [facility] #[id number], Partial fill upon patient request if the prescription is for a schedule II opioid drug., 160, cm, 03/27/22 9:00:00 EST,... Start Date: 03/27/22 Stop Date: 06/25/22 Status: Orderedsertraline 100 mg oral tablet 1 tablet = 100 mg, By Mouth, Daily, # 90 tablet, 0 Refills, Maintenance, 03/27/22 12:24:00 EST, Tablet, [facility] #[id number], Partial fill upon patient request if the prescription is for a schedule II opioid drug., 160, cm, 03/27/22 9:00:00 EST... Start Date: 03/27/22 Stop Date: 06/25/22 Status: Orderedvalsartan 160 mg oral tablet 160 mg, 1, tablet, By Mouth, Daily, # 90 tablet, Refills 0, Tot. Refills 0, Maintenance, 03/27/22 12:24:00 EST, Route to Pharmacy Electronically, [facility] #[id number], Partial fill upon patient request if the prescription is for a schedule II o... Start Date: 03/27/22 Stop Date: 06/25/22 Status: Ordered Problem List Condition Confirmation Course Effective Dates Status Health I nformant Status Depression Confirmed Active GERD Confirmed Active (gastroesophageal reflux disease) Generalized anxiety Confirmed Active disorder HTN (hypertension) Confirmed Active Microscopic hematuria Confirmed Active Mixed hyperlipidemia Confirmed Active Obese class I Confirmed Active Injury of ankle, Confirmed 07/02/21 Active right Sarcoidosis Confirmed Active Social History Social History Type Response Smoking Status Former smoker, quit more lilly n 30 days ago; Other: Quit when she was 21, smoked for about 4 years; entered on: 03/27/22 Sex Note Event Display: Non BH Lab Results Authored Date: Event Display: Non BH Lab Results Authored Date: Event Display: Non BH Lab Results Authored Date: Event Display: MM Mammogram Authored Date: Event Display: X-Ray Chest, Non- BH Authored Date: CT Skeletal system Multisection for bone density Event Display: Bone Density Authored Date: Patient Care team information Care Team PersonnelName: Jere Regan Position: [facility] Associate Professional Member Role: PCP Address: Address: [address] [place] [address]- Care Team Related PersonsName: JAIRO FOX Address: home [address] [place] [id number] Name: RYAN FOX Address: home [address] [place] [address] Name: NALINI LEVINE Address: home [address] [place] [address] [address] [place], [place]
--- OUTSIDE RECORDS SUMMARY | 2022-06-27 13:53 | XMS_ITS | Continuity of Care Document ---
:1955 Author Organization [facility] Address [address] [place] [address]- Care Team Providers Name Role Phone Jere Regan Primary Care Physician Encounter [facility] [place] Date(s): 03/27/22 - 04/03/22 [facility] [address] [place], [place] [address] Encounter Diagnosis HTN (hypertension) (Discharge Diagnosis) - 03/27/22 GERD (gastroesophageal reflux disease) (Discharge Diagnosis) - 03/27/22 Mixed hyperlipidemia (Discharge Diagnosis) - 03/27/22 Microscopic hematuria (Discharge Diagnosis) - 03/27/22 Generalized anxiety disorder (Discharge Diagnosis) - 03/27/22 Sarcoidosis (Discharge Diagnosis) - 03/27/22 Depression (Discharge Diagnosis) - 03/27/22 Attending Physician: Jere Regan Allergies, Adverse Reactions, Alerts Substance Reaction Severity [...] 03/27/22 12:24:00 EST, EC Tablet, 160, cm, 11/16/22 9:00:00 EST, Height, 84, kg, 07/05/21 14:31:00 EST, Dry Weight Start Date: 03/27/22 Stop Date: 06/25/22 Status: Orderedrosuvastatin 40 mg oral tablet 1 tablet = 40 mg, By Mouth, Daily, # 90 tablet, 0 Refills, Maintenance, 03/27/22 12:24:00 EST, Tablet, [facility] #[id number], Partial fill upon patient request if the prescription is for a schedule II opioid drug., 160, cm, 03/27/22 9:00:00 EST,... Start Date: 03/27/22 Stop Date: 06/25/22 Status: Orderedsertraline 100 mg oral tablet 1 tablet = 100 mg, By Mouth, Daily, # 90 tablet, 0 Refills, Maintenance, 03/27/22 12:24:00 EST, Tablet, [facility] #[id number], Partial fill upon patient request if the prescription is for a schedule II opioid drug., 160, cm, 03/27/22 9:00:00 EST... Start Date: 03/27/22 Stop Date: 06/25/22 Status: Orderedvalsartan 160 mg oral tablet 160 mg, 1, tablet, By Mouth, Daily, # 90 tablet, Refills 0, Tot. Refills 0, Maintenance, 03/27/22 12:24:00 EST, Route to Pharmacy Electronically, [id number], Partial fill upon patient request if the prescription is for a schedule II o... Start Date: 03/27/22 Stop Date: 06/25/22 Status: Ordered Problem List Condition Confirmation Course Effective Dates [facility] I nformant Status Depression Confirmed Active GERD Confirmed Active (gastroesophageal reflux disease) Generalized anxiety Confirmed Active disorder HTN (hypertension) Confirmed Active Microscopic hematuria Confirmed Active Mixed hyperlipidemia Confirmed Active Obese class I Confirmed Active Injury of ankle, Confirmed 07/02/21 Active right Sarcoidosis Confirmed Active Diagnosis Diagnosis Type Effective Dates Health Clinical Infor mant Status Service HTN (hypertension) Discharge 03/27/22 Diagnosis GERD Discharge 03/27/22 (gastroesophageal Diagnosis reflux disease) Mixed hyperlipidemia Discharge 03/27/22 Diagnosis Microscopic Discharge 03/27/22 hematuria Diagnosis Generalized anxiety Discharge 03/27/22 disorder Diagnosis Sarcoidosis Discharge 03/27/22 Diagnosis Depression Discharge 03/27/22 Diagnosis Procedures Procedure Date Related Diagnosis Body Site Status Bilateral oophorectomy 2006 Compl eted Partial colectomy 2006 Completed Vital Signs Most recent to oldest [Reference Range]: 1 Height 160 cm (03/27/22 9:00 AM) Weight 84.9 kg (03/27/22 9:00 AM) Oxygen Saturation [94-100 %] 98 % (03/27/22 9:00 AM) Pulse Rate [55-90 bpm] 75 bpm (03/27/22 9:00 AM) Body Mass Index [18.5-24.99 kg/m2] 33.16 kg/m2 *>HHI* (03/27/22 9:00 AM) Blood Pressure [90-138/55-84 mm Hg] 138/70 mm Hg (03/27/22 9:00 AM) Respiratory Rate [16-30 br/min] 16 br/min (03/27/22 9:00 AM) Temperature [96.8-100.4 DegF] 97.4 DegF (03/27/22 9:00 AM) Mode of Delivery (Oxygen) Room air (03/27/22 9:00 AM) Blood pressure sites Arm, left (03/27/22 9:00 AM) Temperature Route Temporal (03/27/22 9:00 AM) Weight Obtained Via Standing scale (03/27/22 9:00 AM) Social History Social History Type Response Smoking Status Former smoker, quit more lilly n 30 days ago; Other: Quit when she was 21, smoked for about 4 years; entered on: 03/27/22 Sex Note Monik Taveras: PERFORM, SIGN, VERIFY Event Display: Patient Education/Instruction Authored Date: [id number] [facility] Clinical Summary Name DESMOND FOX Age 66 Years 1955 PCP Malgorzata GOEL, Jere Coker PCP Visit Date 03/27/2022 08:51:00 Additional Instructions: Scheduled Appointments?? Future Appointments ?No Future Appointments Scheduled Follow-Up Instructions ?? Diagnosis Sarcoidosis, unspecified; Mixed hyperlipidemia; Other microscopic hematuria; Generalized anxiety disorder; Depression, unspecified; Essential (primary) hypertension; Gastro-esophageal reflux disease without esophagitis Medications: Please continue your medications until treatment is completed or stopped by your provider. Discuss any questions related to medications with your provider. Medications to Continue with No Changes These medications were not printed or sent to your pharmacy Estradiol Topical (estradiol 10 mcg vaginal tablet) INSERT 1 TABLET VAGINALLY 2 TIMES A WEEK. Next Dose: Pantoprazole (pantoprazole 40 mg oral delayed release tablet) 1 tab(s). Next Dose: Rosuvastatin (rosuvastatin 40 mg oral tablet) 1 tab(s) Oral Daily. Next Dose: Sertraline (sertraline 100 mg oral tablet) 1 tab(s) Oral Daily. Next Dose: Valsartan (valsartan 160 mg oral tablet) TAKE 1 TABLET BY MOUTH EVERY DAY. Next Dose: Allergy Info:?? Stadol; penicillins; doxycycline Medications Given This Visit Future Orders ?No future orders Vital Signs Height 160 cm Weight 84.9 kg BMI 33.16 kg/m2 Blood Pressure 138 mm Hg/70 mm Hg Temperature 97.4 DegF Pulse Rate 75 bpm Respiratory Rate 16 br/min 02 Sat Mode of Delivery 98 %/Room air You can now view a summary of your hospital visit from the comfort of your home through a free online portal called [employer]. [employer] is a website that allows you to securely view yourmedical information including discharge summary, medications and follow-up visits. ??You can also send a secure electronic message to your doctor???s office to request appointments, renew medications or just ask a question. You can enroll at [email or web address] or register during your next office visit. Disclaimer:?? The information provided is of a general nature and is intended to be used in conjunction with the recommendations and advice of your health care practitioner. ??Every effort has been made to ensure that the information provided is accurate and complete at the time it is provided to you however, as your needs change, or, as new ??information becomes available, different or additional instructions may be required. If you have questions, please consult with your primary care provider or pharmacist, as appropriate.??This information is not intended to serve as substitution for assessment and evaluation by a qualified health care provider. If you do not have a primary care provider, you may find a [facility] provider by calling [facility] [employer] [facility] at [phone]. For information about the plan of care including goals and instructions for your diagnosis, please see the patient education orders section of this document. Patient Education Materials?? The content of this educational material or handout may have been modified, supplemented, or adaptedfrom its original content and format to support your individualized medical care. Patient Care team information Care Team PersonnelName: Jere Reagn Position: [facility] Associate Professional Member Role: PCP Address: Address: [address] [place] [address]- Care Team Related PersonsName: JAIRO FOX Address: home [address] [place] [id number] Name: RYAN FOX Address: home [address], [place] Name: NALINI LEVINE Address: home [address] [place] [address] DR CHAVEZ, [facility]
--- OUTSIDE RECORDS SUMMARY | 2022-06-27 13:53 | XMS_ITS | Continuity of Care Document ---
:1955 Author Organization [facility] Address [address] [place] [address]- Care Team Providers Name Role Phone Beck Vargas MD Primary Care Physician Encounter [facility] N[facility] [id number] Date(s): 07/03/21 - 08/02/21 [facility] [address] [place] [address]- Allergies, Adverse Reactions, Alerts Substance Reaction Severity [...]
--- OUTSIDE RECORDS SUMMARY | 2022-06-27 13:53 | XMS_ITS | Continuity of Care Document ---
:1955 Author Organization [facility] Address [address] [place] [address]- Care Team Providers Name Role Phone Beck Vargas MD Primary Care Physician Encounter [facility] Date(s): 07/02/21 - 07/02/[address] [address]- Discharge Disposition: A-D/C Home Attending Physician: Charly Burden MD Admitting Physician: Charly Burden MD Referring Physician: Not on Staff, Referring MD Allergies, Adverse Reactions, Alerts Substance Reaction Severity Status doxycycline passed out Active Stadol itchy/jittery Active penicillins rash Active Medications acetaminophen-HYDROcodone 325 mg-5 mg oral tablet 2 tablet, Tablet, By Mouth, STAT, 07/02/21 13:29:00 EST Start Date: 07/02/21 Stop Date: 07/02/21 Status: Completedacetaminophen-HYDROcodone 325 mg-5 mg oral tablet 2 tablet, By Mouth, Every 6 hours, for 3 days, More specifically 1 to 2 tablets every 6 hours as needed for pain, # 20 tablet, 0 Refills, Acute 07/05/21 13:34:00 EST, 07/02/21 13:34:00 EST, Tablet, Partial fill upon patient request if the prescription... Start Date: 07/02/21 Stop Date: 07/05/21 Status: OrderedCrestor 40 mg oral tablet 1 tablet = 40 mg, By Mouth, Daily at bedtime, 0 Refills, Maintenance Start Date: 02/28/12 Status: Orderedibuprofen 600 mg oral tablet 600 mg, 1, tablet, By Mouth, 3 times a day, for 5 days, Do not start until July 04, # 15 tablet,Refills 0, Tot. Refills 0, Acute 07/07/21 13:35:00 EST, 07/02/21 13:35:00 EST, Print Requisition, Partial fill upon patient request if the prescriptio... Start Date: 07/02/21 Stop Date: 07/07/21 Status: OrderedLotrel 5 mg-20 mg oral capsule 1 capsule, By Mouth, Daily, 0 Refills, Maintenance Start [...] Maintenance, 04/29/14 14:02:21 Start Date: 04/29/14 Status: OrderedXanax Tablet By Mouth, 3 times a day, Maintenance, 04/29/14 14:02:12 Start Date: 04/29/14 Status: OrderedZocor 5 mg oral tablet See Instructions, 1 tablet By Mouth Daily at bedtime, 0 Refills, Maintenance, 09/26/18 15:30:13 EDT Start Date: 09/26/18 Status: OrderedZoloft Tablet 100, mg, By Mouth, Daily in AM, 0, 0, 09/29/06 12:26:27, Print BINA Number, [id number], Constant Indicator Start Date: 09/29/06 Status: Ordered Results Radiology Reports Exam Date Time Procedure Performing Provider Status 07/02/21 12:56 PM Ankle Min 3 Views Right Chacha Short; Auth (Verified) Notes:(Ankle Min 3 Views Right) Reason For Exam: PainRESULT: Ankle Min 3 Views Right Ankle Min 3 Views Right Hx of Present Illness: Fall today at 10:30 w right ankle injury; Reason: Pain; Clinical Question(s):Fracture FINDINGS: Oblique fracture distal fibula without significant displacement or angulation. Soft tissueswelling in this area seen. There are some radiolucent lines related to medial aspect of distal medial malleolus, probable fracture here question age. No significant soft tissue swelling seen in this location. Tiny spur off inferior calcaneus. IMPRESSION: Oblique fracture distal fibula. Probable fracture medial malleolus, possibly old. WSN: [id number] Ordering Physician: Issac Camacho Dictated By: Ian Wall MD Dictated Date/Time: 07/02/21 1:08 pm Reviewed By: Ian Wall MD Signed By: Ian Wall MD Signed Date/Time: 07/02/21 1:08 pm Transcribed By: NOAH Transcribed Date/Time: 07/02/21 1:05 pm Vital Signs Most recent to oldest 1 2 3 [Reference Range]: Height 161 cm 161 cm (07/02/21 2:35 PM) (07/02/21 12:41 PM) Weight 84 kg (07/02/21 12:41 PM) Oxygen Saturation [94-100 100 % 96 % %] (07/02/21 2:35 PM) (07/02/21 12:41 PM) Pulse Rate [55-90 bpm] 58 bpm 77 bpm (07/02/21 2:35 PM) (07/02/21 12:41 PM) Blood Pressure 128/64 mm Hg 147/69 mm Hg [90-138/55-84 mm Hg] (07/02/21 2:35 PM) *H* (07/02/21 12:41 PM) Respiratory Rate [16-30 16 br/min 16 br/min 16 br/mi n br/min] (07/02/21 2:38 PM) (07/02/21 2:35 PM) (07/02/21 12: 41 PM) Temperature [96.8-100.4 98.0 DegF DegF] (07/02/21 12:41 PM) Mode of Delivery (Oxygen) Room air Room air (07/02/21 2:35 PM) (07/02/21 12:41 PM) Blood pressure sites Arm, right Arm, left (07/02/21 2:35 PM) (07/02/21 12:41 PM) Temperature Route Oral (07/02/21 12:41 PM) Dry Weight 84 kg (07/02/21 12:41 PM) Weight Obtained Via Patient/family stated (07/02/21 12:41 PM) Social History Social History Type Response Smoking Status Former smoker entered on: 04/29/14 Sex
--- OUTSIDE RECORDS SUMMARY | 2022-06-27 13:53 | XMS_ITS | Continuity of Care Document ---
:1955 Author Organization [facility] Address [address] [place] [address]- Care Team Providers Name Role Phone Beck Vargas MD Primary Care Physician Encounter [facility] NBR [id number] Date(s): 08/27/21 - 09/26/21 [facility] [address] [place] [address]- Attending Physician: Amanda Adams Admitting Physician: Amanda [...]
--- OUTSIDE RECORDS SUMMARY | 2022-06-27 13:53 | XMS_ITS | Continuity of Care Document ---
:1955 Author Organization [facility] Address [address] [address]- Care Team Providers Name Role Phone Beck Vargas MD Primary Care Physician Encounter [facility] Date(s): 07/03/21 - 08/02/[address] [address]- Attending Physician: Amanda Adams Admitting Physician: Amanda [...] class I(Confirmed) Active Injury of ankle, right(Confirmed) 2/21/22 Active Social History Social History Type Response Smoking Status Former smoker entered on: 04/29/14 Sex
[2022-06-27 13:59] LABS: MANUAL DIFF FLAG NO
[2022-06-27 14:01] LABS: Basophils Percent Auto 0.5 % (0-2); Eosinophils Absolute Auto 0.1 X10*3/uL (0.0-0.4); Hematocrit 39.5 % (37.0-47.0); Hemoglobin 13.2 g/dl (12.0-16.0); Imm Gran Abs Auto 0.01 X10*3/uL (0.00-0.03); Imm Gran Pct Auto 0.2 % (0.0-0.4); Lymphocytes Absolute Auto 2.7 X10*3/uL (1.2-4.9); Lymphocytes Percent Auto 39.9 % (20-40); Mean Corpuscular HGB Conc 33.4 g/dl (31.0-35.0); Mean Corpuscular Hemoglobin 30.6 pg (27.0-33.0); Mean Corpuscular Volume 91.4 fL (80.0-98.0); Mean Platelet Volume 9.7 fL (9.4-12.3); Monocytes Absolute Auto 0.3 X10*3/uL (0.1-1.2); Monocytes Percent Auto 4.4 % (2-11); Neutrophils Absolute Auto 3.5 x10*3/uL (2.0-8.3); Platelet Count 303 X10*3/uL (160-400); Red Blood Count 4.32 X10*6/uL (4.20-5.50); Red Cell Distribution Width 12.5 % (11.0-16.0); White Blood Count 6.7 X10*3/uL (4.8-10.8)
[2022-06-27 14:06] LABS: INTERNATIONAL NORM RATIO 0.9 (0.9-1.1); Prothrombin Time 10.7 SEC (10.0-13.1)
[2022-06-27 14:26] LABS: Alanine Aminotransferase 22 U/L (0-31); Albumin Level 4.4 g/dL (3.5-5.0); Alkaline Phosphatase 64 U/L (39-117); Anion Gap 14 (12-20); Aspartate Amino Transferase 22 U/L (5-31); Bilirubin Total 1.3 mg/dL (0.0-1.0); Blood Urea Nitrogen 17 mg/dL (9-16); Calcium 9.5 mg/dL (8.4-10.2); Carbon Dioxide 21 mmol/L (22-29); Chloride 108 mmol/L (96-108); Creatinine Clr Calc Pharmacy 64.4; Estimated Glomerular Filt Rate > 60; Glucose Random 155 mg/dL (60-115); Magnesium 1.9 mg/dL (1.6-2.6); Potassium 3.9 mmol/L (3.3-5.1); Sodium 139 mmol/L (135-145); Total Protein 7.2 g/dL (6.5-8.0)
[2022-06-27 14:35] LABS: Troponin-I High Sensitivity < 3.5 ng/L (<3.5-17.0)
[2022-06-27 14:42] LABS: Influenza A PCR NEGATIVE (Negative); Influenza B PCR NEGATIVE (Negative); Resp Syncy Virus RNA Qual PCR NEGATIVE (Negative); SARS COV2 PCR INHOUSE NEGATIVE (Negative)
--- NOTE | 2022-06-27 19:07 | MHC.EDTECH ---
EKG was done but not documented
--- NOTE | 2022-06-27 19:10 | PC.NURSE ---
Addendum entered by Makenzie Escobar RN 06/27/22 19:28: pt is alert and oriented resting in bed no signs of acute distress notice breathing equally unlabored Original Note: report received from SELINA Almodovar
--- NOTE | 2022-06-27 19:20 | ED_ITS ---
HPI - General Adult General Chief complaint: General Medical Stated complaint: sob, upper back pain, heart pounding. Time Seen by Provider: 06/27/22 19:04 Source: patient, RN notes reviewed and old records reviewed Mode of arrival: ambulatory Limitations: no limitations History of Present Illness HPI narrative: 66-year-old female past medical history significant for sarcoidosis, hypertension, GERD, depression presents for evaluation of palpitations and upper back pain. patient works upstairs as a triage nurse. She reports she was sitting in her desk when she felt a sensation of heart palpitations like my heart was beating too fast. This happened about 6 hours prior to my evaluation. She reports that 1 of her coworkers palpated her pulse and found it to be irregular prompting the patient to present to the emergency department the patient also endorses upper back pain across the entire upper back. His pain is worse with any kind of movement, bending over, or stretching. The patient initially reported shortness of breath to the triage nurse. She denies having had shortness of breath at all today to me. She states that she occasionally has shortness of breath related to her sarcoido sis but has not had any issues in the last few days at least. She has a chronic dry cough for many years which is unchanged denies any personal history of coronary artery disease. she does have family history of coronary artery disease patient denies any risk factors for PE including history of clots, recent travel at the time my evaluation, the patient reports that her symptoms are improved Related Data Home Medications Medication Instructions Recorded Confirmed estradiol 10 mcg vaginal tablet 10 mcg vaginal 2XW 06/12/22 pantoprazole 40 mg tablet,delayed 40 mg PO DAILY 06/12/22 release rosuvastatin 40 mg tablet 40 mg PO DAILY 06/12/22 sertraline 100 mg tablet 100 mg PO DAILY 06/12/22 valsartan 160 mg tablet 160 mg PO DAILY 06/12/22 Allergies Allergy/AdvReac Type Severity Reaction Status Date / Time penicillin V Allergy Unknown hives Verified 06/12/22 18:25 doxycycline AdvReac Fainting Verified 06/12/22 18:25 Review of Systems Constitutional: Constitutional: Reports as per HPI, Denies chills and Denies fatigue ENT: Denies neck pain Cardiovascular: Cardiovascular: Denies chest pain, Reports irregular heart rhythm and Denies dyspnea Respiratory: Respiratory: Denies cough and Denies dyspnea Gastrointestinal: Gastrointestinal: Denies abdominal pain, Denies constipation and Denies vomiting Genitourinary: Genitourinary: Denies dysuria Musculoskeletal: Musculoskeletal: Reports back pain and Denies neck pain Endocrine: Endocrine: Denies fatigue PMFSH Social History Social History Advance Directives: No Physical Exam ED Vital Signs: Vital Signs - 24 hr 06/27/22 13:37 Temperature 98 F Pulse Rate 88 Respiratory Rate 19 Blood Pressure 164/82 H Pulse Oximetry 98 Oxygen Delivery Method Room Air BMI result Body Mass Index 32.5 Const General: healthy appearing, comfortable, no acute distress, alert and awake Nutritional Appearance: well nourished Orientation/consciousness: patient oriented x3 Eyes Eyelids: Yes eyelids normal Conjunctivae: conjunctivae normal Sclerae: sclerae normal Corneas: corneas normal Pupils: Equal, round and reactive pupils present EOM: EOMs intact bilaterally Chest Chest palpation & inspection: normal palpation of entire chest wall Resp Effort & Inspection: normal respiratory effort, able to speak in complete sentences, no audible wheezes and not labored Auscultation: clear to auscultation bilaterally Cardio Jugular venous distension: no JVD Rate: regular rate Rhythm: regular rhythm GI Palpation (GI): Soft to palpation, nontender, no guarding and no pulsatile masses Auscultation: normoactive bowel sounds Back/Spine/Pelvis Other: Patient has tenderness across the thoracic paraspinous region without focal deformity or focal vertebral tenderness. Back: back tenderness Skin General skin exam: no rashes or lesions noted and elasticity normal Lesions: no lesions Rashes: no rashes Neuro General: patient oriented x3 Cranial nerves: Yes Equal, round and reactive pupils present Extrem General: Yes full ROM Medical Decision Making Medical Decision Making MDM Narrative: this is a 66 from a past medical history significant for hypertension maintained on valsartan for many years with no significant history of coronary artery disease presenting for evaluation of heart palpitations and back pain. The patient's back pain is reproducible on exam. It is across her entire upper back. She never had any chest pain or shortness of breath. less likely to be ACS. patient's EKG was sinus rhythm with several PVCs which could explain the ER the patient fell. No evidence of ischemia. Patient is currently asymptomatic vital signs are stable, she is mildly hypertensive no evidence of hypertensive urgency or emergency. Her respiratory rate is normal, she is not tachycardic, I resected for PE. The patient's troponin was negative. The patient has no abdominal tenderness, no pulsatile masses to suggest aortic aneurysm. The patient's bili was noted to be slightly elevated at 1.3 low she has no right upper quadrant pain tenderness on exam and no GI symptoms. At this time the patient's back pain is felt to be most likely musculoskeletal related. The patient will follow-up with her primary doctor for PVCs PVCs Differential Diagnosis Cardiac arrhythmia, PE, ACS, back pain, aortic aneurysm, biliary disease Lab Data MDM Lab Attestation statement: I reviewed the patient's lab results. 06/27/22 13:52 06/27/22 13:51 Labs: Lab Results 06/27/22 06/27/22 06/27/22 Range/Units 13:51 13:51 13:51 WBC (4.8-10.8) X10*3/uL RBC (4.20-5.50) X10*6/uL Hgb (12.0-16.0) g/dl Hct (37.0-47.0) % MCV (80.0-98.0) fL MCH (27.0-33.0) pg MCHC (31.0-35.0) g/dl RDW (11.0-16.0) % Plt Count (160-400) X10*3/uL MPV (9.4-12.3) fL Immature Gran % (Auto) (0.0-0.4) % Neut % (Auto) (45-73) % Lymph % (Auto) (20-40) % Lipscomb % (Auto) (2-11) % Eos % (Auto) (0-4) % Baso % (Auto) (0-2) % Lymph # (Auto) (1.2-4.9) X10*3/uL Lipscomb # (Auto) (0.1-1.2) X10*3/uL Eos # (Auto) (0.0-0.4) X10*3/uL Baso # (Auto) (0.0-0.2) X10*3/uL Abs Immat Gran (auto) (0.00-0.03) X10*3/uL Absolute Neuts (auto) (2.0-8.3) x10*3/uL Absolute Nucleated RBC (0.0-0.012) X10*3/uL Nucleated RBC % (auto) (0.0-0.2) /100WBC PT 10.7 (10.0-13.1) SEC INR 0.9 (0.9-1.1) Sodium 139 (135-145) mmol/L Potassium 3.9 (3.3-5.1) mmol/L Chloride 108 (96-108) mmol/L Carbon Dioxide 21 L (22-29) mmol/L Anion Gap 14 (12-20) BUN 17 H (9-16) mg/dL Creatinine 0.89 (0.5-1.4) mg/dL Estim Creat Clear Calc 64.4 Estimated GFR > 60 Random Glucose 155 H (60-115) mg/dL Calcium 9.5 (8.4-10.2) mg/dL Magnesium 1.9 (1.6-2.6) mg/dL Total Bilirubin 1.3 H (0.0-1.0) mg/dL AST 22 (5-31) U/L ALT 22 (0-31) U/L Alkaline Phosphatase 64 (39-117) U/L Troponin I High Sens < 3.5 (<3.5-17.0) ng/L Total Protein 7.2 (6.5-8.0) g/dL Albumin 4.4 (3.5-5.0) g/dL Influenza Type A (PCR) (Negative) Influenza Type B (PCR) (Negative) RSV RNA Qual (PCR) (Negative) SARS-CoV-2 RNA (RT-PCR) (Negative) 06/27/22 06/27/22 Range/Units 13:51 13:52 WBC 6.7 (4.8-10.8) X10*3/uL RBC 4.32 (4.20-5.50) X10*6/uL Hgb 13.2 (12.0-16.0) g/dl Hct 39.5 (37.0-47.0) % MCV 91.4 (80.0-98.0) fL MCH 30.6 (27.0-33.0) pg MCHC 33.4 (31.0-35.0) g/dl RDW 12.5 (11.0-16.0) % Plt Count 303 (160-400) X10*3/uL MPV 9.7 (9.4-12.3) fL Immature Gran % (Auto) 0.2 (0.0-0.4) % Neut % (Auto) 53.0 (45-73) % Lymph % (Auto) 39.9 (20-40) % Lipscomb % (Auto) 4.4 (2-11) % Eos % (Auto) 2.0 (0-4) % Baso % (Auto) 0.5 (0-2) % Lymph # (Auto) 2.7 (1.2-4.9) X10*3/uL Lipscomb # (Auto) 0.3 (0.1-1.2) X10*3/uL Eos # (Auto) 0.1 (0.0-0.4) X10*3/uL Baso # (Auto) 0.0 (0.0-0.2) X10*3/uL Abs Immat Gran (auto) 0.01 (0.00-0.03) X10*3/uL Absolute Neuts (auto) 3.5 (2.0-8.3) x10*3/uL Absolute Nucleated RBC 0.000 (0.0-0.012) X10*3/uL Nucleated RBC % (auto) 0.0 (0.0-0.2) /100WBC PT (10.0-13.1) SEC INR (0.9-1.1) Sodium (135-145) mmol/L Potassium (3.3-5.1) mmol/L Chloride (96-108) mmol/L Carbon Dioxide (22-29) mmol/L Anion Gap (12-20) BUN (9-16) mg/dL Creatinine (0.5-1.4) mg/dL Estim Creat Clear Calc Estimated GFR Random Glucose (60-115) mg/dL Calcium (8.4-10.2) mg/dL Magnesium (1.6-2.6) mg/dL Total Bilirubin (0.0-1.0) mg/dL AST (5-31) U/L ALT (0-31) U/L Alkaline Phosphatase (39-117) U/L Troponin I High Sens (<3.5-17.0) ng/L Total Protein (6.5-8.0) g/dL Albumin (3.5-5.0) g/dL Influenza Type A (PCR) NEGATIVE (Negative) Influenza Type B (PCR) NEGATIVE (Negative) RSV RNA Qual (PCR) NEGATIVE (Negative) SARS-CoV-2 RNA (RT-PCR) NEGATIVE (Negative) Independent Interpretation I performed an independent interpretation of an: EKG and Plain X-Ray Interpretation: sinus rhythm with frequent PVCs. No ischemia agree with Radiology interpretation of no acute cardiopulmonary disease Radiology Impression Discussion of test interpretation with radiology: I have reviewed the radiologist's reading. Tests considered The following testing was considered but not selected: did consider CTA of the chest to evaluate for PE/ aortic aneurysm/ dissection. Given that I have a low suspicion for these the patient has no risk factors for PE and her blood pressures are mildly elevated, I discussed the risks and benefits with the patient and she deferred testing at this time. I do feel it is appropriate to defer this testing at this time. The patient was encouraged to return for new or worsening symptoms Discharge Plan Discharge Clinical Impression: Back pain, Frequent PVCs Patient Disposition: Home, Self-Care Instructions: Back Pain (ED) Additional Instructions: your workup in the emergency department today was reassuring. This included blood work, chest x-ray and an EKG. Yourr EKG did show frequent PVCs which could explain the palpitations that you were feeling. You may use our profound or Tylenol for any further back pain. return for new or worsening symptoms call your doctor tomorrow to schedule follow-up Prescriptions: No Action sertraline 100 mg tablet 100 mg PO DAILY rosuvastatin 40 mg tablet 40 mg PO DAILY valsartan 160 mg tablet 160 mg PO DAILY pantoprazole 40 mg tablet,delayed release (DR/EC) 40 mg PO DAILY estradiol 10 mcg tablet 10 mcg vaginal 2XW
[2022-06-27 19:26] VITALS: BP 170/72; PULSE 68; RESP 17; TEMP 36.8; O2SAT 95
== END 2022-06-27 19:46 | disposition home or self-care (01) ==
PROVIDERS: Physician Assistant Medical; Emergency Provider Emergency Medicine; PCP Internal Medicine
DX: I49.9 Cardiac arrhythmia, unspecified (principal); R06.02 Shortness of breath; M54.50 Low back pain, unspecified; R00.2 Palpitations; Z20.822 Contact with and (suspected) exposure to COVID-19; Z20.828 Contact with and (suspected) exposure to other viral communicable diseases; Z79.899 Other long term (current) drug therapy
CPT/HCPCS: 0241U; 36415; 71046; 80053; 83735; 84484; 85025; 85610; 93005; 99282; 99283

== ENCOUNTER → 2022-07-11 11:24 | Outpatient (REF) | payer OTHER, SELFPAY ==
--- NOTE | 2022-07-11 11:32 | HM_ITS ---
conclusion: 1. Patient was monitored for total period of 2 days 2. Baseline was normal sinus rhythm with average heart rate 65 beats per minute 3. No significant pauses or bradycardia noted 4. Rare PACs noted 5. Total of 5 SVT events with fastest at 01:52 beats per min the longest of 8 beats noted 6. Patient reported 1 symptom of fluttering in the chest which correlated with sinus rhythm MTDD
== END ==
LOC: HO.CARD 11:24
PROVIDERS: PCP Internal Medicine; Visit Provider Nurse Practitioner Family
DX: R00.2 Palpitations (principal); R06.02 Shortness of breath
CPT/HCPCS: 93225

== ENCOUNTER 2022-07-29 07:45 | Outpatient (REF) | payer OTHER, SELFPAY ==
--- NOTE | ~2022-07-29 | US_ITS ---
EXAMINATION: US RETROPERITONEAL COMPLETE (RENAL) CLINICAL INFORMATION: Other microscopic hematuria. COMPARISON: None available. TECHNIQUE: Real-time imaging of the kidneys and bladder. FINDINGS: RIGHT KIDNEY: 9.7 x 4.6 x 5.2 cm (SAG x AP x TRV). The kidney is normal in size, contour, and echogenicity. Renal cortical thickness is normal. No calculi or focal parenchymal lesions. No hydronephrosis. LEFT KIDNEY: 10.2 x 5.5 x 4.2 cm (SAG x AP x TRV). The kidney is normal in size, contour, and echogenicity. Renal cortical thickness is normal. No calculi or focal parenchymal lesions. No hydronephrosis. BLADDER: Well distended and normal. Bilateral ureteral jets are not demonstrated. Prevoid bladder volume is 182.0 mL. Postvoid bladder volume is not evaluated. US/US retroperitoneal comp IMPRESSION: Unremarkable renal ultrasound. Prevoid bladder measures 182). Postvoid bladder was not evaluated. Bilateral ureteral jets are not seen.
== END 2022-07-29 07:46 | disposition home or self-care (01) ==
LOC: HO.US 07:45
PROVIDERS: PCP Internal Medicine; Visit Provider Nurse Practitioner Family
DX: R31.29 Other microscopic hematuria (principal)
CPT/HCPCS: 76770

== ENCOUNTER 2022-07-31 13:40 | Outpatient (REF) | payer OTHER, SELFPAY ==
[2022-07-31 15:23] LABS: Thyroid Stimulating Hormone 1.77 uIU/mL (0.32-4.0)
== END 2022-07-31 13:41 | disposition home or self-care (01) ==
LOC: HO.LAB 13:40
PROVIDERS: PCP Internal Medicine; Visit Provider Nurse Practitioner Family
DX: R00.2 Palpitations (principal)
CPT/HCPCS: 36415; 84443

== ENCOUNTER → 2022-08-07 14:32 | Outpatient (BNVA) | payer OTHER, SELFPAY | PROVIDERS: PCP Internal Medicine; Visit Provider Urology | DX: R31.29 Other microscopic hematuria (principal) | CPT/HCPCS: 52000 ==

== ENCOUNTER → 2022-08-08 10:50 | Outpatient (REF) | payer OTHER, SELFPAY ==
--- NOTE | 2022-08-08 10:54 | CA_ITS ---
Acquisition Time: 2022-08-08 11:25:31 Total Exercise Time: 00:05:33 Test Indications: PALPITATIONS Medications: Protocol: MELVIN Max HR: 144 BPM 93% of Pred: 154 BPM Max BP: 164/072 mmHG Max Work Load: 7.0 METS Exercise stress test with exercise 5 min 33 sec of Melvin protocol, achieving 93% MPHR, without chest discomfort, with moderate SOB, with isolated PVCs, with normotensive response to exercise, without EKG changes meeting criteria for ischemia during exercise, borderline ST change noted in recovery. Echo images obtained by tech at resk and immediately post peak exercise. Definty contrast used. Test reviewed with Dr. Boswell. Referred By: Caridad Telles Overread By: GLEN ROCHA
== END ==
LOC: HO.CARD 10:50
PROVIDERS: PCP Internal Medicine; Visit Provider Nurse Practitioner Family
DX: R00.2 Palpitations (principal); R06.02 Shortness of breath
CPT/HCPCS: 93350; Q9957

== ENCOUNTER → 2022-09-11 08:44 | Outpatient (BNVA) | payer OTHER, SELFPAY | PROVIDERS: PCP Internal Medicine; Visit Provider Hospitalist | DX: Z13.89 Encounter for screening for other disorder (principal) ==

== ENCOUNTER 2022-09-26 11:58 | Outpatient (REF) | payer OTHER, SELFPAY ==
--- NOTE | 2022-09-26 12:52 | PFT_ITS ---
FLOWS: 1. FEV1 86% of predicted at 1.99 L. 2. FVC 75% of predicted at 3.27 L. 3. FEV1 to FVC ratio of 0.88. 4. No bronchodilator response except in small to medium airways. LUNGS VOLUMES: 1. Total lung capacity 79% of predicted at 3.89 L. 2. Residual volume 70% of predicted at 1.45 L. 3. Slow vital capacity 85% of predicted at 3.44 L. 4. Expiratory reserve volume 18% of predicted at 0.13 L. 5. Diffusion capacity is normal. IMPRESSION: Mild restrictive ventilatory defect with no bronchodilator response, except in small to medium airways. Decreased expiratory reserve volume suggests extrathoracic restriction, likely secondary to abdominal obesity. Jerzy Davis MD AP/MODL / [id number]
== END 2022-09-26 11:59 | disposition home or self-care (01) ==
LOC: HO.RESP 11:58
PROVIDERS: PCP Internal Medicine; Visit Provider Hospitalist
DX: J45.909 Unspecified asthma, uncomplicated (principal); D86.9 Sarcoidosis, unspecified
CPT/HCPCS: 94010; 94727; 94729

== ENCOUNTER 2022-10-03 10:44 | Outpatient (REF) | payer OTHER, SELFPAY ==
[2022-10-03 10:55] LABS: MANUAL DIFF FLAG NO
[2022-10-03 11:59] LABS: Basophils Percent Auto 0.4 % (0-2); Eosinophils Absolute Auto 0.1 X10*3/uL (0.0-0.4); Eosinophils Percent Auto 1.5 % (0-4); Hematocrit 39.6 % (37.0-47.0); Imm Gran Abs Auto 0.02 X10*3/uL (0.00-0.03); Imm Gran Pct Auto 0.3 % (0.0-0.4); Lymphocytes Absolute Auto 2.5 X10*3/uL (1.2-4.9); Lymphocytes Percent Auto 31.4 % (20-40); Mean Corpuscular HGB Conc 32.8 g/dl (31.0-35.0); Mean Corpuscular Hemoglobin 30.4 pg (27.0-33.0); Mean Corpuscular Volume 92.5 fL (80.0-98.0); Mean Platelet Volume 10.1 fL (9.4-12.3); Monocytes Absolute Auto 0.3 X10*3/uL (0.1-1.2); Monocytes Percent Auto 4.2 % (2-11); Neutrophils Absolute Auto 4.9 x10*3/uL (2.0-8.3); Neutrophils Percent Auto 62.2 % (45-73); Platelet Count 285 X10*3/uL (160-400); Red Blood Count 4.28 X10*6/uL (4.20-5.50); Red Cell Distribution Width 12.5 % (11.0-16.0); White Blood Count 7.8 X10*3/uL (4.8-10.8)
[2022-10-10 09:27] LABS: Immunoglobulin E 64 kU/L (<OR=114)
[2022-10-11 20:49] LABS: Angiotensin Converting Enzyme 30 U/L (9-67)
[2022-10-15 17:14] LABS: IgA 136 mg/dL (70-320); IgG 1103 mg/dL (600-1540); IgM 29 mg/dL (50-300)
== END 2022-10-03 10:45 | disposition home or self-care (01) ==
LOC: HO.LAB 10:44
PROVIDERS: PCP Internal Medicine; Visit Provider Hospitalist
DX: D86.9 Sarcoidosis, unspecified (principal); J45.909 Unspecified asthma, uncomplicated
CPT/HCPCS: 36415; 82164; 82784; 82785; 85025

== ENCOUNTER 2023-01-22 07:49 | Outpatient (REF) | payer OTHER, SELFPAY ==
--- NOTE | ~2023-01-22 | MM_ITS ---
EXAMINATION: MM SCREENING DIGITAL BREAST TOMOSYNTHESIS, BILATERAL CLINICAL INFORMATION: Screening. Asymptomatic. COMPARISON: Mammography: 11/09/2021, 08/16/2020, 03/02/2019, 02/26/2017 TECHNIQUE: Digital breast tomosynthesis is performed in both the craniocaudal and mediolateral oblique views along with computer-aided detection (CAD). Synthesized 2D images are generated from the tomosynthesis. FINDINGS: The breasts are almost entirely fatty (ACR BI-RADS breast composition Category a). There are no suspicious masses, suspicious grouped calcifications, or areas of architectural distortion. The parenchymal pattern is stable from prior exams. A few scattered benign type calcifications are present. MM/MM tomosynthesis screening BI IMPRESSION: No mammographic evidence of malignancy. ASSESSMENT: BI-RADS BI-RADS 2 - Benign Findings RECOMMENDATION: Routine annual mammography screening. 1 year F/U This examination should not preclude the clinical evaluation of a suspicious palpable abnormality. This patient's information was entered into a reminder system with a target due date for their next mammogram.
== END 2023-01-22 07:50 | disposition home or self-care (01) ==
LOC: HO.MAMMO 07:49
PROVIDERS: PCP Internal Medicine; Visit Provider Obstetrics & Gynecology
DX: Z12.31 Encounter for screening mammogram for malignant neoplasm of breast (principal)
CPT/HCPCS: 77063; 77067

== ENCOUNTER → 2023-01-22 08:00 | Outpatient (BNV) | payer OTHER, SELFPAY | PROVIDERS: PCP Internal Medicine; Visit Provider Radiology Diagnostic Radiology | DX: Z12.31 Encounter for screening mammogram for malignant neoplasm of breast (principal) | CPT/HCPCS: 77063; 77067 ==

== ENCOUNTER 2023-04-15 07:31 | Outpatient (AMB) | payer OTHER, SELFPAY ==
--- NOTE | 2023-04-15 07:33 | A.OFFVIS_ITS ---
Intake Vital Signs 04/15/23 07:45 Height 5 ft 3 in Weight 180 lb BMI 31.9 BP 137/66 Blood Pressure Location Lt brachial Position Sitting Pulse 62 Intake Visit Reasons: Colonoscopy Screening Intake Note: Patient new consult for 2nd pre colonoscopy screening. Patient cc: some diarrhea on and off, acid reflex is much better with medication and some hemorrhoids with some little amount of blood on and off. Insurance Defense Attorney Required: No Accompanied by: Self / Same As Patient Allergies penicillin V Allergy (Unknown, Verified 04/15/23 07:33) hives doxycycline Adverse Reaction (Verified 04/15/23 07:33) Fainting Medication List - Last Reconciled 04/15/23 by Sanam Montez PA-C estradiol 10 mcg vaginal 2XW pantoprazole 40 mg PO DAILY rosuvastatin 40 mg PO DAILY sertraline 100 mg PO DAILY Symbicort 160-4.5 mcg/actuation (budesonide-formoterol) 2 puffs inhalation BID 30 days NS valsartan 160 mg PO DAILY HPI HPI Comments History of Present Illness Details A 67 y/o female sarco referred for screening colonoscopy - she had previous colonoscopy at [facility] She has no major GI complaints she does have hemorrhoids that flare occasion. Loose stool-imodium Heartburn -pantoprazole responsive-EGD in the past- no Barretts Wound no nausea, vomiting hematemesis, hematochezia fever or chills PFSH Medical History (Updated 04/15/23 @ 11:28 by Sanam Montez PA-C) Asthmatic bronchitis Sarcoidosis Surgical History Hx of colonoscopy Hx of endoscopy Hx of bilateral oophorectomy Hx of cholecystectomy History of partial colectomy Family History Father Stroke Mother Heart failure Social History Household Members: Family Alcohol intake: never Patient Tobacco Use Status: Never used Tobacco Use of substances other than those prescribed or required for medical reasons: No Review of Systems Const All systems reviewed & are unremarkable except as noted in HPI and below Card Denies chest pain and Denies dyspnea Resp Denies dyspnea GI Denies abdominal pain, Denies heartburn, Denies nausea and Denies vomiting Physical Exam Vital Signs: Last Vital Signs Pulse 62 04/15/23 07:45 BP 137/66 04/15/23 07:45 BMI result Body Mass Index 31.9 Const General: cooperative, healthy appearing, comfortable and no acute distress Orientation/consciousness: patient oriented x3 Limitations: no limitations Eyes Sclerae: sclerae normal Resp Effort & Inspection: normal respiratory effort and able to speak in complete sentences Auscultation: clear to auscultation bilaterally, no rales, no rhonchi and no wheezes Cardio Rate: regular rate Rhythm: regular rhythm Heart sounds: S1 normal heart sound present and S2 normal heart sound present GI Palpation (GI): Soft to palpation and nontender Auscultation: normal bowel sounds Skin General skin exam: no rashes or lesions noted Neuro General: patient oriented x3 Extrem General: Yes full ROM Psych Appearance: grossly normal and well kempt Mental Status: mental status grossly normal Speech and movement: Normal speech and movement present and Clear speech present Affect: normal affect Attitude: cooperative Thought process: Normal thought process present Thought content: Normal thought content present Insight: Good insight present (Psych) Judgement: Good judgement present (Psych) Assessment & Plan Assessment & Plan (1) Hemorrhoids: Comment: HFD No straining- Code(s): K64.9 - Unspecified hemorrhoids Plan: Avoid straining high-fiber diet (2) Encounter for screening colonoscopy: Comment: Very pleasant 67-year-old female due for screening colonoscopy Occasional hemorrhoids, manages well maintain high-fiber diet Code(s): Z12.11 - Encounter for screening for malignant neoplasm of colon Plan: Screening colonoscopy Plan Screening colon MiraLax Gatorade prep Orders: Orders Colonoscopy - GI Use Only Today Z12.11 - Encounter for screening for malignant neoplasm of colon Medications: New bisacodyl (Dulcolax (bisacodyl)) Day before procedure, prep day Take 4 tablets by mouth upon awakening followed by large glass of water 20 mg (4 x 5 mg) PO ONCE 1 day 4 tabs 0RF colonoscopy prep Z12.11 - Encounter for screening for malignant neoplasm of colon polyethylene glycol 3350 (Miralax) 17 grams PO DAILY 510 grams 6RF Patient Instructions: Screening colonoscopy MiraLax Gatorade prep, reviewed, literature given Avoid straining with hemorrhoid Maintain high-fiber diet Continue plan reflux, ppi and dietary modifications Encouraged to call with any questions or concerns Appreciate the opportunity assist in the care this pleasant patient Coding Level of Care Code New Pt Level 3 (58311) Diagnoses Hemorrhoids K64.9 Encounter for screening colonoscopy Z12.11 Time Spent (min) 30
[2023-04-15 07:45] VITALS: BP 137/66; PULSE 62; BMI 31.9
== END 2023-04-15 08:53 | disposition home or self-care (01) ==
PROVIDERS: PCP Internal Medicine; Visit Provider Physician Assistant
DX: K64.9 Unspecified hemorrhoids (principal); Z12.11 Encounter for screening for malignant neoplasm of colon
CPT/HCPCS: 99203

== ENCOUNTER 2023-04-15 07:31 | Outpatient (REF) | payer OTHER, SELFPAY ==
[2023-04-15 10:07] LABS: Vitamin D 25-OH Total 23.1 ng/mL (>30)
[2023-04-15 10:33] LABS: Alanine Aminotransferase 23 U/L (0-31); Albumin Level 4.4 g/dL (3.5-5.0); Alkaline Phosphatase 59 U/L (39-117); Anion Gap 13 (12-20); Aspartate Amino Transferase 24 U/L (5-31); Bilirubin Total 0.8 mg/dL (0.0-1.0); Blood Urea Nitrogen 20 mg/dL (9-16); Calcium 9.7 mg/dL (8.4-10.2); Carbon Dioxide 24 mmol/L (22-29); Chloride 109 mmol/L (96-108); Cholesterol 148 mg/dL (<200); Estimated Glomerular Filt Rate > 60; Glucose Random 107 mg/dL (60-115); HDL Cholesterol 55 mg/dL (>40); LDL Cholesterol Calculated 77 mg/dL (<100); Potassium 4.7 mmol/L (3.3-5.1); Sodium 141 mmol/L (135-145); Total Protein 7.3 g/dL (6.5-8.0); Triglycerides 84 mg/dL (<150)
== END 2023-04-15 07:32 | disposition home or self-care (01) ==
LOC: HO.LAB 07:31
PROVIDERS: PCP Internal Medicine; Visit Provider Physician Assistant
DX: Z01.818 Encounter for other preprocedural examination (principal); K64.9 Unspecified hemorrhoids; E55.9 Vitamin D deficiency, unspecified; I10 Essential (primary) hypertension
CPT/HCPCS: 36415; 80053; 80061; 82306

== ENCOUNTER 2023-06-02 10:57 | Outpatient (AMB) | payer OTHER, SELFPAY ==
[2023-06-02 11:00] VITALS: PULSE 67; O2SAT 97; BMI 31.9
--- NOTE | 2023-06-02 11:00 | MHC.OFFVIS ---
Intake Vital Signs 06/02/23 11:00 Height 5 ft 3 in Weight 180 lb BMI 31.9 Pulse 67 Pulse Source Pulse Oximeter Pulse Oximetry (%) 97 Oxygen Delivery Method Room Air Intake Visit Reasons: shortness of breath Admitting Officer Required: No Allergies penicillin V Allergy (Unknown, Verified 06/02/23 11:01) hives doxycycline Adverse Reaction (Verified 06/02/23 11:01) Fainting HPI HPI Comments History of Present Illness Details The patient is a 67 year woman with a known history of sarcoidosis. Apparently, she was diagnosed many years ago by previous braider tender via bronchoscopy. The details are not available. She was told she had a stage III sarcoidosis. The patient's monitor closely but never needed systemic treatment, only inhalers. No evidence of any extrapulmonary disease. Ultimately, her symptoms subsided. More recently she has been noticing worsening respiratory symptoms. Moderate severity. She has been having increasing coughing. She was given a rescue inhaler with partial resolution of the symptoms. With history of sarcoidosis she is wondering if this could be related. The patient did have a recent chest x-ray demonstrating some atelectasis otherwise no other acute disease. We personally reviewed it. She also had blood work done. At this point will request additional blood work in addition to pulmonary function studies. If abnormal and if the patient continues to be symptomatic we can consider CT scan of the chest. In addition to this we did talk about starting Symbicort. 06/02/2023 the patient is here for a pulmonary follow-up visit. Her cough is significantly improved. She does have the Symbicort inhaler but now she has not had to use it because her symptoms have improved dramatically. She did undergo pulmonary function studies demonstrating mild restriction. In part could be due to body habitus but also she does have some atelectasis on the x-ray. Will plan to repeat the chest x-ray and the PFTs in 8-12 months. At this point the patient is doing fairly well does not appear to have any activity of sarcoid at this time. We did look at the blood work her Stan level was also normal which is reassuring. The patient is having some issues however with daytime drowsiness. She is having significant snoring documented by family. She is waking up tired and with headaches and her [place] score is elevated at 11 over 24. The patient does have underlying cardiovascular risk factors with high blood pressure. Will go ahead and request a home sleep study at this time. The patient follow-up after her study. [facility] Medical History (Updated 06/02/23 @ 13:03 by Carlos Centeno MD) KAILYN (obstructive sleep apnea) Asthmatic bronchitis Sarcoidosis Surgical History Hx of colonoscopy Hx of endoscopy Hx of bilateral oophorectomy Hx of cholecystectomy History of partial colectomy Family History Father Stroke Mother Heart failure Social History Household Members: Family Alcohol intake: never Patient Tobacco Use Status: Never used Tobacco Review of Systems Const Denies chills, Reports daytime sleepiness, Reports difficulty sleeping, Denies fever(s), Reports snoring and Reports stops breathing during sleep Eyes Denies change in vision ENT Reports no additional complaints Card Reports no additional complaints, Denies chest pain, Denies syncope and Reports dyspnea on exertion Resp Denies cough, Reports dyspnea on exertion and Reports snoring GI Denies abdominal pain and Denies heartburn Musc Reports no additional complaints Skin/Breast Denies rash Neuro Denies syncope Stanislav/Lymph Denies easy bleeding, Denies easy bruising and Denies lymphadenopathy Physical Exam Vital Signs: Last Vital Signs Pulse 67 06/02/23 11:00 Pulse Ox 97 06/02/23 11:00 Oxygen Delivery Method Room Air 06/02/23 11:00 BMI result Body Mass Index 31.9 Const General: cooperative, healthy appearing, comfortable and no acute distress Orientation/consciousness: patient oriented x3 HEENT Face and sinus: Yes normal facial exam Mouth: moist mucous membranes Neck Neck: Yes normal visual inspection, Yes full ROM and Yes trachea midline Chest Chest palpation & inspection: normal inspection of the chest Resp Effort & Inspection: normal respiratory effort Auscultation: no crackles, no rales, no wheezes and diminished lung sounds GI Inspection: Yes normal to inspection Skin General skin exam: no rashes or lesions noted Neuro General: patient oriented x3, gait normal, tone normal and moves all extremities Extrem General: Yes normal to inspection and Yes capillary refill normal Assessment & Plan Assessment & Plan (1) Sarcoidosis: Comment: No active Sarcoid clinically at this point Code(s): D86.9 - Sarcoidosis, unspecified (2) Asthmatic bronchitis: Code(s): J45.909 - Unspecified asthma, uncomplicated Qualifiers: Asthma severity: moderate Asthma persistence: persistent Asthma complication type: uncomplicated Qualified Code(s): J45.40 - Moderate persistent asthma, uncomplicated (3) KAILYN (obstructive sleep apnea): Code(s): G47.33 - Obstructive sleep apnea (adult) (pediatric) Plan continue Symbicort with apecer LUCRETIA as needed Home sleep study F/U 2-3 months Orders: Orders RT home sleep study Today G47.33 - Obstructive sleep apnea (adult) (pediatric) Coding Level of Care Code Est Pt Level 4 (32640) Diagnoses Sarcoidosis D86.9 Moderate persistent asthmatic bronchitis without complication J45.40 Asthma severity: moderate Asthma persistence: persistent Asthma complication type: uncomplicated KAILYN (obstructive sleep apnea) G47.33 Time Spent (min) 17
== END 2023-06-02 11:17 | disposition home or self-care (01) ==
PROVIDERS: PCP Internal Medicine; Visit Provider Hospitalist
DX: D86.9 Sarcoidosis, unspecified (principal); J45.40 Moderate persistent asthma, uncomplicated; G47.33 Obstructive sleep apnea (adult) (pediatric)
CPT/HCPCS: 99214

== ENCOUNTER → 2023-06-02 10:57 | Outpatient (BNVA) | payer OTHER, SELFPAY | PROVIDERS: PCP Internal Medicine; Visit Provider Hospitalist ==

== ENCOUNTER → 2023-07-09 07:59 | Outpatient (REF) | payer OTHER, SELFPAY | LOC: HO.SL 07:59 | PROVIDERS: PCP Internal Medicine; Visit Provider Hospitalist | DX: G47.33 Obstructive sleep apnea (adult) (pediatric) (principal) | CPT/HCPCS: 95806 ==

== ENCOUNTER → 2023-07-09 08:06 | Outpatient (BNV) | payer OTHER, SELFPAY | PROVIDERS: PCP Internal Medicine; Visit Provider Internal Medicine | DX: G47.33 Obstructive sleep apnea (adult) (pediatric) (principal) | CPT/HCPCS: 95806 ==

== ENCOUNTER 2023-10-20 08:38 | Outpatient (AMB) | payer OTHER, SELFPAY ==
--- NOTE | 2023-10-20 08:41 | MHC.OFFVIS ---
Vital Signs 10/20/23 08:44 Height 5 ft 3 in Weight 179 lb 14.355 oz BMI 31.9 BP 126/60 Blood Pressure Location Lt brachial Position Sitting Pulse 60 Pulse Source Pulse Oximeter Pulse Oximetry (%) 98 Oxygen Delivery Method Room Air Intake Visit Reasons: kailyn Event Specialist Food Demonstrator Required: No Allergies penicillin V Allergy (Unknown, Verified 10/20/23 08:45) hives doxycycline Adverse Reaction (Verified 10/20/23 08:45) Fainting HPI Comments Details: The patient is a 68 year woman with a known history of sarcoidosis. Apparently, she was diagnosed many years ago by previous drink mixer via bronchoscopy. The details are not available. She was told she had a stage III sarcoidosis. The patient's monitor closely but never needed systemic treatment, only inhalers. No evidence of any extrapulmonary disease. Ultimately, her symptoms subsided. More recently she has been noticing worsening respiratory symptoms. Moderate severity. She has been having increasing coughing. She was given a rescue inhaler with partial resolution of the symptoms. With history of sarcoidosis she is wondering if this could be related. The patient did have a recent chest x-ray demonstrating some atelectasis otherwise no other acute disease. We personally reviewed it. She also had blood work done. At this point will request additional blood work in addition to pulmonary function studies. If abnormal and if the patient continues to be symptomatic we can consider CT scan of the chest. In addition to this we did talk about starting Symbicort. 06/02/2023 the patient is here for a pulmonary follow-up visit. Her cough is significantly improved. She does have the Symbicort inhaler but now she has not had to use it because her symptoms have improved dramatically. She did undergo pulmonary function studies demonstrating mild restriction. In part could be due to body habitus but also she does have some atelectasis on the x-ray. Will plan to repeat the chest x-ray and the PFTs in 8-12 months. At this point the patient is doing fairly well does not appear to have any activity of sarcoid at this time. We did look at the blood work her Stan level was also normal which is reassuring. The patient is having some issues however with daytime drowsiness. She is having significant snoring documented by family. She is waking up tired and with headaches and her [place] score is elevated at 11 over 24. The patient does have underlying cardiovascular risk factors with high blood pressure. Will go ahead and request a home sleep study at this time. The patient follow-up after her study. 10/20/2023 the patient is here for a pulmonary follow-up visit. The patient continues to have daytime drowsiness. She does have also cardiovascular risk factors including hypertension. The patient does have also some known snoring. She did undergo home sleep study which we reviewed. She appears have mild sleep apnea. During the study she did have significant hypoxia spending 5 minutes below 88% and she also had evidence of tachycardia with heart rate in the 110 range. Explained to the patient that is causing significant cardiovascular risk. The patient does not sleep supine so she is already performing positional therapy. Based on cardiovascular risk factors and symptoms the patient is agreeable to starting CPAP at this time. Will send every prescription to a local [employer] company to set her up. From a respiratory status doing okay she does have the Symbicort that she uses as needed. Will follow-up in 4 months after she gets her CPAP and she starts using it so we can further assess her response to therapy. [facility] Medical History (Updated 06/02/23 @ 13:03 by Carlos Centeno MD) KAILYN (obstructive sleep apnea) Asthmatic bronchitis Sarcoidosis Surgical History Hx of colonoscopy Hx of endoscopy Hx of bilateral oophorectomy Hx of cholecystectomy History of partial colectomy Family History Father Stroke Mother Heart failure Social History Household Members: Family Alcohol intake: never Patient Tobacco Use Status: Never used Tobacco Review of Systems Const Denies chills, Reports daytime sleepiness, Reports difficulty sleeping, Denies fever(s), Reports snoring and Reports stops breathing during sleep Eyes Denies change in vision ENT Reports no additional complaints Card Reports no additional complaints, Denies chest pain, Denies syncope and Reports dyspnea on exertion Resp Denies cough, Reports dyspnea on exertion and Reports snoring GI Denies abdominal pain and Denies heartburn Musc Reports no additional complaints Skin/Breast Denies rash Neuro Denies syncope Stanislav/Lymph Denies easy bleeding, Denies easy bruising and Denies lymphadenopathy Physical Exam Vital Signs: Last Vital Signs Pulse 60 10/20/23 08:44 BP 126/60 10/20/23 08:44 Pulse Ox 98 10/20/23 08:44 Oxygen Delivery Method Room Air 10/20/23 08:44 BMI result Body Mass Index 31.9 Const General: cooperative, healthy appearing, comfortable and no acute distress Orientation/consciousness: patient oriented x3 HEENT Face and sinus: Yes normal facial exam Mouth: moist mucous membranes Neck Neck: Yes normal visual inspection, Yes full ROM and Yes trachea midline Chest Chest palpation & inspection: normal inspection of the chest Resp Effort & Inspection: normal respiratory effort Auscultation: clear to auscultation bilaterally, no crackles, no rales and no wheezes GI Inspection: Yes normal to inspection Skin General skin exam: no rashes or lesions noted Neuro General: patient oriented x3, gait normal, tone normal and moves all extremities Extrem General: Yes normal to inspection and Yes capillary refill normal Assessment & Plan Assessment & Plan (1) KAILYN (obstructive sleep apnea): Code(s): G47.33 - Obstructive sleep apnea (adult) (pediatric) Category: Medical (2) Sarcoidosis: Comment: No active Sarcoid clinically at this point Code(s): D86.9 - Sarcoidosis, unspecified Category: Medical (3) Asthmatic bronchitis: Code(s): J45.909 - Unspecified asthma, uncomplicated Category: Medical Qualifiers: Asthma complication type: uncomplicated Asthma persistence: persistent Asthma severity: moderate Qualified Code(s): J45.40 - Moderate persistent asthma, uncomplicated Plan continue Symbicort LUCRETIA as needed start APAP with nasal pillows F/U 4 months Coding Level of Care Code Est Pt Level 4 (87405) Diagnoses KAILYN (obstructive sleep apnea) G47.33 Sarcoidosis D86.9 Moderate persistent asthmatic bronchitis without complication J45.40 Asthma complication type: uncomplicated Asthma persistence: persistent Asthma severity: moderate Time Spent (min) 16
[2023-10-20 08:44] VITALS: BP 126/60; PULSE 60; O2SAT 98; BMI 31.9
== END 2023-10-20 09:03 | disposition home or self-care (01) ==
PROVIDERS: PCP Internal Medicine; Visit Provider Hospitalist
DX: G47.33 Obstructive sleep apnea (adult) (pediatric) (principal); D86.9 Sarcoidosis, unspecified; J45.40 Moderate persistent asthma, uncomplicated
CPT/HCPCS: 99214

== ENCOUNTER → 2023-10-20 08:38 | Outpatient (BNVA) | payer OTHER, SELFPAY | PROVIDERS: PCP Internal Medicine; Visit Provider Hospitalist ==

== ENCOUNTER 2024-04-06 08:14 | Outpatient (REF) | payer OTHER, SELFPAY ==
--- NOTE | ~2024-04-06 | MM_ITS ---
EXAMINATION: MM SCREENING DIGITAL BREAST TOMOSYNTHESIS, BILATERAL CLINICAL INFORMATION: Screening. Asymptomatic. COMPARISON: Mammography: Comparison is made with available priors TECHNIQUE: Digital breast mammography with tomosynthesis is performed in both the craniocaudal and mediolateral oblique views along with computer-aided detection (CAD). FINDINGS: There are scattered areas of fibroglandular density (ACR BI-RADS breast composition Category b). There are no significant masses, abnormal calcifications, or other abnormalities. MM/MM tomosynthesis screening BI IMPRESSION: No mammographic evidence of malignancy. ASSESSMENT: BI-RADS BI-RADS 1 - Negative RECOMMENDATION: Routine annual mammography screening. 1 year F/U This examination should not preclude the clinical evaluation of a suspicious palpable abnormality. This patient's information was entered into a reminder system with a target due date for their next mammogram. Electronically signed by: Carmella Macario DO 04/06/2024 11:06 AM JENA
== END 2024-04-06 08:15 | disposition home or self-care (01) ==
LOC: HO.MAMMO 08:14
PROVIDERS: PCP Internal Medicine; Visit Provider Internal Medicine
DX: Z12.31 Encounter for screening mammogram for malignant neoplasm of breast (principal)
CPT/HCPCS: 77063; 77067

== ENCOUNTER → 2024-04-06 08:30 | Outpatient (BNV) | payer OTHER, SELFPAY | PROVIDERS: PCP Internal Medicine; Visit Provider Internal Medicine | DX: Z12.31 Encounter for screening mammogram for malignant neoplasm of breast (principal) | CPT/HCPCS: 77063; 77067 ==

== ENCOUNTER 2024-11-29 07:48 | Outpatient (REF) | payer OTHER, SELFPAY ==
[2024-11-29 07:59] LABS: MANUAL DIFF FLAG NO
[2024-11-29 08:05] LABS: Hematocrit 37.4 % (37.0-47.0); Hemoglobin 12.5 g/dl (12.0-16.0); Imm Gran Abs Auto 0.02 X10*3/uL (0.00-0.03); Imm Gran Pct Auto 0.3 % (0.0-0.4); Lymphocytes Absolute Auto 2.1 X10*3/uL (1.2-4.9); Mean Corpuscular HGB Conc 33.4 g/dl (31.0-35.0); Mean Corpuscular Hemoglobin 30.9 pg (27.0-33.0); Mean Corpuscular Volume 92.3 fL (80.0-98.0); NRBC Abs Auto 0.000 X10*3/uL (0.0-0.012); NRBC Pct Auto 0.0 /100WBC (0.0-0.2); Platelet Count 260 X10*3/uL (160-400); Red Blood Count 4.05 X10*6/uL (4.20-5.50); White Blood Count 6.0 X10*3/uL (4.8-10.8)
[2024-11-29 08:40] LABS: Alanine Aminotransferase 21 U/L (0-31); Albumin Level 4.4 g/dL (3.5-5.0); Alkaline Phosphatase 53 U/L (39-117); Anion Gap 11 (12-20); Aspartate Amino Transferase 27 U/L (5-31); Blood Urea Nitrogen 18 mg/dL (9-16); Calcium 9.2 mg/dL (8.4-10.2); Carbon Dioxide 26 mmol/L (22-29); Chloride 110 mmol/L (96-108); Cholesterol 150 mg/dL (<200); Estimated Glomerular Filt Rate > 60; HDL Cholesterol 63 mg/dL (>40); Potassium 4.4 mmol/L (3.3-5.1); Sodium 143 mmol/L (135-145); Total Protein 7.2 g/dL (6.5-8.0); Triglycerides 98 mg/dL (<150)
[2024-11-29 08:59] LABS: Thyroid Stimulating Hormone 1.63 uIU/mL (0.32-4.0)
== END 2024-11-29 07:49 | disposition home or self-care (01) ==
LOC: HO.LAB 07:48
PROVIDERS: Visit Provider Internal Medicine
DX: I10 Essential (primary) hypertension (principal); E78.2 Mixed hyperlipidemia; R42 Dizziness and giddiness
CPT/HCPCS: 36415; 80053; 80061; 84443; 85025